=== PATIENT | female | born 1960 | race Caucasian/White ===

== ENCOUNTER → 2017-09-05 08:46 | Outpatient (CLI) | payer BC, SELFPAY ==
[2017-09-05 10:33] LABS: Anion Gap 7 (5-15); BUN 12 mg/dL (7-18); BUN/Creat Ratio 17.3 RATIO (10-20); Calcium,Total 9.2 mg/dL (8.5-10.1); Chloride 109 mmol/L (98-107); Cholesterol 176 mg/dL (200); Creatinine, Serum 0.69 mg/dL (0.55-1.02); EST Glomerular Filtration Rate 92 mL/min (>60); Est Glom Filt Rate - Afr Amer 111 mL/min (>60); Glucose 86 mg/dL (74-106); High Density Lipoprotein 71 mg/dL; Potassium 4.5 mmol/L (3.5-5.1); Sodium Level 143 mmol/L (136-145); Triglycerides 55 mg/dL; Very Low Density Lipoprotein 11 mg/dL (5-40)
== END ==
PROVIDERS: Family Provider Family Medicine; PCP Family Medicine; Visit Provider Family Medicine
DX: I10 Essential (primary) hypertension (principal)
CPT/HCPCS: 36415; 80048; 80061

== ENCOUNTER → 2018-03-06 09:30 | Outpatient (CLI) | payer BC, SELFPAY ==
[2018-03-06 12:27] LABS: Anion Gap 7 (5-15); BUN 14 mg/dL (7-18); BUN/Creat Ratio 18.9 RATIO (10-20); Calcium,Total 9.6 mg/dL (8.5-10.1); Chloride 108 mmol/L (98-107); Creatinine, Serum 0.74 mg/dL (0.55-1.02); EST Glomerular Filtration Rate 85 mL/min (>60); Est Glom Filt Rate - Afr Amer 103 mL/min (>60); Glucose 89 mg/dL (74-106); Potassium 4.4 mmol/L (3.5-5.1); Sodium Level 143 mmol/L (136-145)
== END ==
PROVIDERS: Family Provider Family Medicine; PCP Family Medicine; Visit Provider Family Medicine
DX: I10 Essential (primary) hypertension (principal)
CPT/HCPCS: 36415; 80048

== ENCOUNTER 2018-04-14 05:19 | Inpatient (IN) | payer BC, SELFPAY ==
[2018-04-01 10:02] VITALS: PULSE 51; RESP 16; TEMP 36.7; O2SAT 97; BMI 38.0
--- NOTE | 2018-04-01 10:22 | SDCEKG_ITS ---
Test Reason : Blood Pressure : / mmHG Vent. Rate : 048 BPM Atrial Rate : 048 BPM P-R Int : 174 ms QRS Dur : 088 ms QT Int : 466 ms P-R-T Axes : 028 -28 -03 degrees QTc Int : 416 ms Marked sinus bradycardia Moderate voltage criteria for LVH, may be normal variant Abnormal ECG Confirmed by BROCK PASCUAL, JARED ([id number]), senior technical editor CECILE SMITH ([id number] on 04/02/2018 3:33:09 PM Referred By: Armando Fulton Confirmed By:JARED GUTIÉRREZ MD
[2018-04-01 12:18] LABS: Hematocrit 38.8 % (37-47); Hemoglobin 12.5 g/dl (12.0-15.0); Mean Corp Hgb Conc 32.2 g/gl (32-36); Mean Corpuscular Hgb 33.2 pg (27.0-32.0); Mean Corpuscular Volume 103.2 fL (81-99); Mean Platelet Vol. 11.1 fl (6.2-12.0); Platelet Count 152 K/mm3 (150-450); RBC Distribution Width CV 12.6 % (11.6-14.6); RBC Distribution Width SD 47.6 fl (35.1-43.9); Red Blood Count 3.76 M/mm3 (4.2-5.4); White Blood Count 5.5 K/mm3 (4.4-11.0)
[2018-04-01 12:19] LABS: Scan Indicated on CBC? Y/N NO
[2018-04-01 12:40] LABS: Anion Gap 6 (5-15); BUN 17 mg/dL (7-18); BUN/Creat Ratio 24.2 RATIO (10-20); Calcium,Total 9.3 mg/dL (8.5-10.1); Chloride 112 mmol/L (98-107); EST Glomerular Filtration Rate 91 mL/min (>60); Est Glom Filt Rate - Afr Amer 110 mL/min (>60); Estimated Creatinine Clearance 74.72 ml/min; Glucose 80 mg/dL (74-106); Potassium 4.4 mmol/L (3.5-5.1); Sodium Level 144 mmol/L (136-145)
--- NOTE | 2018-04-09 13:45 | CASEMGMT ---
Attempted to contact patient regarding discharge needs after upcoming surgery. No answer on home phone, message left. Anisa Hays LPN Clinical Support
--- NOTE | 2018-04-10 08:32 | CASEMGMT ---
Return phone call from patient. Patient plans to return home after surgery with assist from and daughter. Has outpatient PT set up at [facility] and /daughter will assist with transportation. Patient has a walker, shower seat, toilet riser, and grab bars at home. There are no steps to get into home. Informed patient that RN-CM will likely follow up after surgery. Anisa Hays LPN Clinical Support
[2018-04-14] VITALS (10 sets, daily range): BP systolic 101–153; BP diastolic 49–80; PULSE 46–89; RESP 14–16; TEMP 35.9–37.5; O2SAT 96–100; BMI 38.0
--- NOTE | 2018-04-14 | KNEE_PTH ---
PATIENT: LORENA IVEY LOC: MS3 U#:[id number] AGE/SX: 57/F RO[facility] [facility] [place]04/14/[address]: Dr. Armando Fulton DO : 1960 BED: 1 DIS: 04/15/2018 SPEC #: [id number] RECD: 04/14/18 15:00 STATUS: EVELYN AUGUSTO #: [id number] SANDRA: 04/14/18 00:[address]: Armando Fulton DEPT: SURGICAL PATHOLOGY RECD BY: Herminio Oro ENTERED: 04/14/18 15:00 SP TYPE: TOTAL KNEE OTHR DR: Dr. Lorenzo Gunn MD Tissues: Knee, NOS Procedures: Decalcification bone/plaque Surgery Specimen Level IV HEADER OPERATION: Total knee replacement PRE-OP DIAGNOSIS: Unilateral primary osteoarthritis left knee TISSUE SUBMITTED: Left knee bone and soft tissue MICROSCOPIC DIAGNOSIS Left knee bone and soft, total knee replacement/resection: Pieces of bone with degenerative osteoarthritic changes. Fibroadipose tissue, fibroconnective tissue and reactive synovial tissue. KAITLIN:liudmila 04/17/18 MICROSCOPIC DESCRIPTION Slides are reviewed. GROSS DESCRIPTION Received is one container designated left knee bone and soft tissue. The specimen consists of multiple fragments of maharaj-yellow bone measuring in aggregate 9 x 9 x 3.5 cm. Also in the specimen container are multiple fragments of yellow-white soft tissue measuring in aggregate 7 x 6 x 3 cm. A number of bony fragments contain articular surfaces consistent with tibial plateau and femoral condyle and displaying prominent osteophyte formation, eburnation, and bone erosion. P[employer] sections are submitted in two cassettes as follows: 1 - soft tissue, 2 - bone after decalcification. / KAITLIN:liudmila 04/14/18 TC:5 [facility]: [id number]
[2018-04-14] MEDS: oxyCODONE HCl Cr 10 MG Tablet PO (06:04)
[2018-04-14] MEDS: Acetaminophen 500 MG Tablet 1000 MG PO ×3 (06:04→22:39)
[2018-04-14] MEDS: Lactated Ringers 1,000 ML 999 ML IV (06:28)
[2018-04-14] MEDS: Cefazolin 2 GM in 0.9% Normal Saline 100 ML IV (07:27)
--- NOTE | 2018-04-14 08:59 | PCM.IMDPSTOP ---
Immediate Post-Op Note Date of Procedure: 04/14/18 Primary Surgeon/Physician: Armando Fulton supervisor in circuit testing: Brando Manning Pre-Operative Diagnosis: OA left knee Post-Operative Diagnosis: same Surgery/Procedure Performed:: Left TKR Description of Surgical Findings:: see op note Estimated Blood Loss: minimal Specimen's removed: bone Type of Anesthesia:: Spinal ASA Class: ASA2 Mod Systematic Disease - Admit VTE Documentation VTE Present on Admission: No VTE Mechan Device Prophylaxis: SCD's, Thigh High CHAPARRITA Hose VTE Pharm Prophylaxis ordered?: Yes
--- NOTE | 2018-04-14 09:01 | PCM.OP.BLANK ---
Operative Report Date of Procedure: 04/14/18 Primary Surgeon/Physician: Armando Fulton rn urgent care: Zhao Manning PA-C rn urgent care: Pre-Operative Diagnosis: OA left knee Post-Operative Diagnosis: same Surgery/Procedure Performed: Left TKR Estimated Blood Loss: minimal Specimen's Removed: bone Type of Anesthesia: spinal ASA Class: 2 Implants: [Marianna Triathlon size 4 cemented PS femur. size 4 cemented tibia, 9 mm polyethylene spacer, 29 mm patella ] Indications: Patient has severe end-stage osteoarthritis diagnosed via x-rays in the knee. They have failed all forms of conservative measures including activity modification, injections, anti-inflammatories, use of assistive device. The patient has pain that affects on a daily basis and prevents him from doing things that they enjoyed. They have elected to undergo the above procedure. The risks of the procedure were discussed at length and their questions were answered. Procedure Description: The patient was greeted in the preoperative area. The [ left] knee was then marked with a surgical marker. Patient was then taken to or Suite 1. They were administered a dose of antibiotics as well as tranexamic acid. Once adequate anesthesia was obtained and airway was secured to placed in supine position on the operating room table. A well-padded tourniquet was placed on the affected extremity. Leg was then prepped and draped in the usual sterile fashion from the knee down. Ioban was used on the skin. Surgical timeout was then performed and confirmed with all present. Six-inch Esmarch was used to examine the limb and tourniquet was then inflated to 250 mmHg. A longitudinal incision was then planned and carried out in the anterior aspect of the knee. The dissection was then carried the length of the incision the extensor mechanism was identified. Standard medial parapatellar arthrotomy was then performed revealing severe eburnation of bone and periarticular osteophytes. There is complete loss of cartilage especially in the medial compartment with varus alignment. Anterior fat pad was removed for visualization purposes and the anterior medial aspect of the tibia was skeletonized for exposure to the knee. The knee was then flexed the patella was inverted. Opening reamer was then used in the femur approximately 1 cm anterior to the attachment of the PCL. The intramedullary valgus wand was then placed in the femur set at 5? of valgus. The distal femoral cutting jig was then applied to the femur with anticipated resection of approximately 8 mm. This was then made with a oscillating saw. The sizing guide was then placed referencing off the posterior condyles and also reference off the epicondylar axis. This was measured and the appropriate size 4-in-1 cutting jig was then applied to the distal femur. Anterior posterior cuts were made followed by the anterior and posterior chamfer cuts. These bony pieces and fragments were removed and placed on the back table. Posterior retractor was then utilized and the tibia was subluxed anteriorly. Intramedullary tibial alignment jig was then applied to the tibia referencing off the medial one third of the tibial tubercle the anterior tibial spine the middle aspect of the tibiotalar joint. Also reference off patient's [place] slope. The tibial cutting jig was then pinned with anticipated resection of 2 mm off of the deficient medial tibial condyle. This cut was made with the oscillating saw. Once this was complete a laminar screen printing cloth spreader was utilized in both medial lateral meniscus were removed and a posterior capsular osteophytes were also removed. Posterior capsule release was performed in the posterior capsule as well as the geniculate arteries are treated with the aqua Cameron. The tibia was incised and the appropriate sized tibial tray was then pinned. The femoral box cutting jig was then applied to the femur and the box was prepared removing a portion of the intercondylar notch. The femoral trial was then placed and the knee was trialed. Full flexion-extension were easily achieved. The knee seemed to balance quite nicely. Any remaining osteophytes were removed at this time. Once this was complete the patella was everted and the Halima patella reaming device was then utilized the patella was then placed in the appropriate jig and reamer was then used to remove approximately 9 mm of the undersurface of the patella. A soft tissue remaining was in the way was removed and patella trial was then placed listed maintain excellent tracking using the no thumbs technique. The tibial tray at this point was punched to accommodate the fins of the final implant. At this point cement was mixed on the back table. The trial components were removed and the knee was copiously irrigated. Did use a cocktail of injection for postoperative pain control. The final components were then cemented in the standard fashion and excess cement was removed with cement removal tools and patellar clamp is placed in the patella. As the cement had cured in full extension tourniquet was deflated and hemostasis was perfect with Bovie cautery as well as the aqua Manus. Needle is once again trialed with different size polyethylenes to ensure the full range of motion was achieved as well as excellent balancing ligamentously was achieved. At this point the knee was copiously irrigated. Final implant was then inserted locking mechanism was engaged and confirmed to be locked. The arthrotomy was then closed with #1 Vicryl aggravate type fashion interrupted. Subcutaneous tissue was closed with 0 Vicryl and surgical david were placed in the skin. A occlusive silver impregnated dressing was then applied followed by well-padded sterile dressing secured with an John Paul wrap. The patient was taken to the PACU in stable condition. No complications known at this time. Postoperatively we will maintain standard total knee postoperative protocol. The use of the physician patient assistant was integral during this procedure. They assisted with positioning placement of the tourniquet retracting closure and placement of the dressing. The procedure would have been much more difficult without their expertise and assistance
--- NOTE | 2018-04-14 09:05 | OP.PCM_ITS ---
Operative Report Date of Procedure: 04/14/18 Primary Surgeon/Physician: Armando Fulton nursing center tutor: Zhao Manning PA-C nursing center tutor: Pre-Operative Diagnosis: OA left knee Post-Operative Diagnosis: same Surgery/Procedure Performed: Left TKR Estimated Blood Loss: minimal Specimen's Removed: bone Type of Anesthesia: spinal ASA Class: 2 Implants: [Marianna Triathlon size 4 cemented PS femur. size 4 cemented tibia, 9 mm polyethylene spacer, 29 mm patella ] Indications: Patient has severe end-stage osteoarthritis diagnosed via x-rays in the knee. They have failed all forms of conservative measures including activity modification, injections, anti-inflammatories, use of assistive device. The patient has pain that affects on a daily basis and prevents him from doing things that they enjoyed. They have elected to undergo the above procedure. The risks of the procedure were discussed at length and their questions were answered. Procedure Description: The patient was greeted in the preoperative area. The [ left] knee was then marked with a surgical marker. Patient was then taken to or Suite 1. They were administered a dose of antibiotics as well as tranexamic acid. Once adequate anesthesia was obtained and airway was secured to placed in supine position on the operating room table. A well-padded tourniquet was placed on the affected extremity. Leg was then prepped and draped in the usual sterile fashion from the knee down. Ioban was used on the skin. Surgical timeout was then performed and confirmed with all present. Six-inch Esmarch was used to examine the limb and tourniquet was then inflated to 250 mmHg. A longitudinal incision was then planned and carried out in the anterior aspect of the knee. The dissection was then carried the length of the incision the extensor mechanism was identified. Standard medial parapatellar arthrotomy was then performed revealing severe eburnation of bone and periarticular osteophytes. There is complete loss of cartilage especially in the medial compartment with varus alignment. Anterior fat pad was removed for visualization purposes and the anterior medial aspect of the tibia was skeletonized for exposure to the knee. The knee was then flexed the patella was inverted. Opening reamer was then used in the femur approximately 1 cm anterior to the attachment of the PCL. The intramedullary valgus wand was then placed in the femur set at 5? of valgus. The distal femoral cutting jig was then applied to the femur with anticipated resection of approximately 8 mm. This was then made with a oscillating saw. The sizing guide was then placed referencing off the posterior condyles and also reference off the epicondylar axis. This was measured and the appropriate size 4-in-1 cutting jig was then applied to the distal femur. Anterior posterior cuts were made followed by the anterior and posterior chamfer cuts. These bony pieces and fragments were removed and placed on the back table. Posterior retractor was then utilized and the tibia was subluxed anteriorly. Intramedullary tibial alignment jig was then applied to the tibia referencing off the medial one third of the tibial tubercle the anterior tibial spine the middle aspect of the tibiotalar joint. Also reference off patient's [place] slope. The tibial cutting jig was then pinned with anticipated resection of 2 mm off of the deficient medial tibial condyle. This cut was made with the oscillating saw. Once this was complete a laminar filler spreader was utilized in both medial lateral meniscus were removed and a posterior capsular osteophytes were also removed. Posterior capsule release was performed in the posterior capsule as well as the geniculate arteries are treated with the aqua Cameron. The tibia was incised and the appropriate sized tibial tray was then pinned. The femoral box cutting jig was then applied to the femur and the box was prepared removing a portion of the intercondylar notch. The femoral trial was then placed and the knee was trialed. Full flexion-extension were easily achieved. The knee seemed to balance quite nicely. Any remaining osteophytes were removed at this time. Once this was complete the patella was everted and the Halima patella reaming device was then utilized the patella was then placed in the appropriate jig and reamer was then used to remove approximately 9 mm of the undersurface of the patella. A soft tissue remaining was in the way was removed and patella trial was then placed listed maintain excellent tracking using the no thumbs technique. The tibial tray at this point was punched to accommodate the fins of the final implant. At this point cement was mixed on the back table. The trial components were removed and the knee was copiously irrigated. Did use a cocktail of injection for postoperative pain control. The final components were then cemented in the standard fashion and excess cement was removed with cement removal tools and patellar clamp is placed in the patella. As the cement had cured in full extension tourniquet was deflated and hemostasis was perfect with Bovie cautery as well as the aqua Manus. Needle is once again trialed with different size polyethylenes to ensure the full range of motion was achieved as well as excellent balancing ligamentously was achieved. At this point the knee was copiously irrigated. Final implant was then inserted locking mechanism was eng aged and confirmed to be locked. The arthrotomy was then closed with #1 Vicryl aggravate type fashion interrupted. Subcutaneous tissue was closed with 0 Vicryl and surgical david were placed in the skin. A occlusive silver impregnated dressing was then applied followed by well-padded sterile dressing secured with an John Paul wrap. The patient was taken to the PACU in stable condition. No complications known at this time. Postoperatively we will maintain standard total knee postoperative protocol. The use of the physician habilitation assistant was integral during this procedure. They assisted with positioning placement of the tourniquet retracting closure and placement of the dressing. The procedure would have been much more difficult without their expertise and assistance
[2018-04-14 10:48] LABS: Hematocrit 41.7 % (37-47); Hemoglobin 13.8 g/dl (12.0-15.0); Mean Corp Hgb Conc 33.1 g/gl (32-36); Mean Corpuscular Hgb 33.9 pg (27.0-32.0); Mean Corpuscular Volume 102.5 fL (81-99); Mean Platelet Vol. 10.8 fl (6.2-12.0); Platelet Count 132 K/mm3 (150-450); RBC Distribution Width CV 12.4 % (11.6-14.6); RBC Distribution Width SD 46.2 fl (35.1-43.9); Red Blood Count 4.07 M/mm3 (4.2-5.4); White Blood Count 5.8 K/mm3 (4.4-11.0)
[2018-04-14 10:53] LABS: Scan Indicated on CBC? Y/N NO
[2018-04-14 11:01] LABS: Anion Gap 7 (5-15); BUN 15 mg/dL (7-18); BUN/Creat Ratio 19.9 RATIO (10-20); Calcium,Total 9.1 mg/dL (8.5-10.1); Chloride 110 mmol/L (98-107); Creatinine, Serum 0.75 mg/dL (0.55-1.02); EST Glomerular Filtration Rate 83 mL/min (>60); Est Glom Filt Rate - Afr Amer 101 mL/min (>60); Estimated Creatinine Clearance 69.74 ml/min; Glucose 92 mg/dL (74-106); Sodium Level 144 mmol/L (136-145)
[2018-04-14] MEDS: Lisinopril 10 MG Tablet PO (13:08)
[2018-04-14] MEDS: hydroCHLOROthiazide 25 MG Tablet PO (13:09)
[2018-04-14] MEDS: Lactated Ringers 1,000 ML 125 ML IV ×2 (13:10→22:39)
[2018-04-14] MEDS: Cefazolin 1 GM/50 ML BAG IV ×2 (15:07→23:50)
[2018-04-14] MEDS: Aspirin 325 MG Tablet PO (22:39)
[2018-04-14] MEDS: Senna/Docusate Sodium 1 Tablet 2 TABLET PO (22:39)
[2018-04-14] MEDS: oxyCODONE 5 MG Tablet PO (22:40)
[2018-04-15 03:12] VITALS: BP 141/69; PULSE 62; RESP 18; TEMP 37.3; O2SAT 94
[2018-04-15] MEDS: oxyCODONE 5 MG Tablet PO ×2 (03:24→09:15)
[2018-04-15] MEDS: Acetaminophen 500 MG Tablet 1000 MG PO ×2 (05:44→13:04)
[2018-04-15 06:12] LABS: Hematocrit 35.4 % (37-47); Hemoglobin 11.6 g/dl (12.0-15.0); Mean Corp Hgb Conc 32.8 g/gl (32-36); Mean Corpuscular Hgb 33.6 pg (27.0-32.0); Mean Corpuscular Volume 102.6 fL (81-99); Mean Platelet Vol. 10.8 fl (6.2-12.0); Platelet Count 129 K/mm3 (150-450); RBC Distribution Width CV 12.4 % (11.6-14.6); RBC Distribution Width SD 46.7 fl (35.1-43.9); Red Blood Count 3.45 M/mm3 (4.2-5.4); White Blood Count 5.4 K/mm3 (4.4-11.0)
[2018-04-15 06:26] LABS: Scan Indicated on CBC? Y/N NO
[2018-04-15 06:35] LABS: Anion Gap 6 (5-15); BUN 12 mg/dL (7-18); BUN/Creat Ratio 15.9 RATIO (10-20); Calcium,Total 8.9 mg/dL (8.5-10.1); Chloride 109 mmol/L (98-107); Creatinine, Serum 0.76 mg/dL (0.55-1.02); EST Glomerular Filtration Rate 83 mL/min (>60); Est Glom Filt Rate - Afr Amer 101 mL/min (>60); Estimated Creatinine Clearance 68.82 ml/min; Glucose 102 mg/dL (74-106); Potassium 4.1 mmol/L (3.5-5.1); Sodium Level 144 mmol/L (136-145)
--- NOTE | 2018-04-15 07:35 | PCM.PN.ORT ---
Subjective: Patient sitting at bedside eating breakfast. Pain well managed. Denies chest pain, shortness breath, calf pain, nausea vomiting. Patient states she is ready to go home today. Patient feels comfortable leaving today as she has gone through a previous total knee. Objective: Dressings clean dry intact. Negative signs and symptoms of DVT. Vital signs labs all within normal limits. Patient is afebrile neurovascular is otherwise intact. - Physical Exam General: Alert, Oriented x3, Cooperative HEENT: PERRLA Oral: Moist Mucosa Cardiovascular: Regular rate Neurological: Cranial nerves II-XII grossly intact Psych/Mental Status: Normal Affect, Alert and oriented to time, place, person, mood and affect Vital Signs Temp Pulse Resp BP Pulse Ox 99.2 F H 62 18 141/69 H 94 04/15/18 03:12 04/15/18 03:12 04/15/18 03:12 04/15/18 03:12 04/15/18 03:12 Oxygen Delivery Method Room Air Weight: 100.4 kg Body Mass Index (BMI) 38.0 Intake and Output for Last 24 Hours 04/13/18 04/14/18 04/15/18 23:59 23:59 23:59 Intake Total 4374 / 4374 736 / 736 Output Total 800 / 800 800 / 800 Balance 3574 / 3574 -64 / -64 Laboratory Tests Past 24 Hrs 04/14/18 04/14/18 04/15/18 10:35 10:35 05:32 WBC 5.8 5.4 RBC 4.07 L 3.45 L Hgb 13.8 11.6 L Hct 41.7 35.4 L MCV 102.5 H 102.6 H MCH 33.9 H 33.6 H MCHC 33.1 32.8 RDW 12.4 12.4 RDW Differential 46.2 H 46.7 H Plt Count 132 L 129 L MPV 10.8 10.8 Sodium 144 Potassium 4.0 Chloride 110 H Carbon Dioxide 27.0 Anion Gap 7 BUN 15 Creatinine 0.75 Estim Creat Clear Calc 69.74 Est GFR (MDRD) Af Amer 101 Est GFR (MDRD) Non-Af 83 BUN/Creatinine Ratio 19.9 Glucose 92 Calcium 9.1 04/15/18 05:32 WBC RBC Hgb Hct MCV MCH MCHC RDW RDW Differential Plt Count MPV Sodium 144 Potassium 4.1 Chloride 109 H Carbon Dioxide 29.0 Anion Gap 6 BUN 12 Creatinine 0.76 Estim Creat Clear Calc 68.82 Est GFR (MDRD) Af Amer 101 Est GFR (MDRD) Non-Af 83 BUN/Creatinine Ratio 15.9 Glucose 102 Calcium 8.9 Medical Necessity - Tobacco Use Smoking Status: Never smoker Assessment/Plan Status post left total knee arthroplasty Plan 1. Continue all pain medications as prescribed 2. Physical therapy today weight-bear as tolerated with walker. 3. Aspirin 325 mg 1 p.o. every 12 hours times 30 days for postop DVT prophylaxis 4. Encourage incentive spirometry 5. Discharge home today after p.m. therapy 6. Follow-up with Dr. Fulton as scheduled, see pink sheet
--- NOTE | 2018-04-15 07:43 | DCINST_ITS ---
Discharge Diet: No Restrictions Discharge Activity: May Not Drive, May Shower, Use Walker May shower in (days): 3 Ice area for (Minutes): 20 - each hour while awake. Weight Bearing Status: Weight bearing as tolerated Elevate: Operative Extremity Additional Activity Instructions:: Wear elastic stockings for 2 weeks after your surgery. Call your doctor if your incision/area has: Continuous Slow Oozing, Sudden Increased Bleeding, Increased Pain/ Swelling, Increased Redness, Foul Smelling Discharge Call your doctor if you observe: Fever of 101 or Higher, Coldness, Increased Pain - in extremity, Numbness or Tingling, Change in Color, Calf discomfort, Uncontrolled pain Change Dressing in (Days):: 0 - and daily as needed. Remove Dressing in (days):: 8 Cleanse incision/area with: Soap & Water Allergies/Adverse Reactions: Allergies Sulfa (Sulfonamide Antibiotics) Allergy (Verified 04/01/18 09:55) Rash Medications to take at Discharge Spironolactone [Aldactone] 50 mg PO DAILY PRN 03/02/14 Lisinopril [Zestril] 10 mg PO DAILY 03/20/16 Multivit-Minerals/Folic Acid [One Daily Womens 50 Plus Tab] 1 tab PO DAILY 04/01/18 Hydrochlorothiazide [Hctz] 25 mg PO DAILY 04/14/18 Acetaminophen [Tylenol] 1,000 mg PO Q8 #90 tab 04/15/18 Aspirin 325 mg PO BID #60 tab 04/15/18 Oxycodone [Oxyir] 5 - 10 mg PO Q4H PRN PRN 7 Days #90 tab 04/15/18 The following prescriptions were given: Oxycodone [Oxyir] 5 - 10 mg PO Q4H PRN PRN 7 Days #90 tab PRN Reason: Mod-Severe Pain (4-04/02) Acetaminophen [Tylenol] 1,000 mg PO Q8 #90 tab Aspirin 325 mg PO BID #60 tab Primary Care Physician: Lorenzo Gunn MD [Primary Care Provider] - Test Results: Test results from this visit will be discussed in further detail at your follow- up appointment, if applicable. Please Follow Up With: Armando Fulton, When: see pink sheet
[2018-04-15] MEDS: Aspirin 325 MG Tablet PO (09:12)
[2018-04-15] MEDS: Multivitamins,Ther W-Minerals Tablet 1 TABLET PO (09:12)
[2018-04-15] MEDS: Lisinopril 10 MG Tablet PO (09:12)
[2018-04-15] MEDS: Senna/Docusate Sodium 1 Tablet 2 TABLET PO (09:12)
[2018-04-15] MEDS: hydroCHLOROthiazide 25 MG Tablet PO (09:12)
[2018-04-15 09:15] VITALS: BP 159/78; PULSE 64; RESP 16; TEMP 36.6; O2SAT 100
--- NOTE | 2018-04-15 11:05 | CASEMGMT ---
RN ELENA Face to Face with patient for initial transition planning/care coordination assessment. RN ELENA introduced self and role at [facility]. Patient lying in bed, alert and oriented, at beside. Patient willing to participate in assessment and is able to answer all questions appropriately. Care providers, pharmacy, and demographics verified. Patient wishes to discharge home with outpatient therapy setup with [facility] and family providing transportation. Patient states she has no further needs or concerns at this time. CM to follow for discharge planning needs that may arise. PCP: Velia Rahman Pharmacy: [facility] Insurance: [employer]mers Prescription Benefit: Summers Living Will/HPOA: None, declined information LNOK: and daughter Living Arrangements: Patient lives with in 2 story home with bed and bath on 1st floor. Transportation: and daughter DME/HHC: Patient has walker, shower chair, raised toilet seat, and grab bars. Disposition Plan: Patient to discharge home with outpatient therapy, family support, and follow-up plans in place. Jennifer MATHEWS, RN, CM
[2018-04-15 13:00] VITALS: BP 139/71; PULSE 85; RESP 18; TEMP 36.7; O2SAT 99
== END 2018-04-15 13:15 | disposition home or self-care (01) | DRG 470 ==
LOC: ACINP 04-15 07:08 → MS3 04-15 07:08
PROVIDERS: Admitting Provider Orthopaedic Surgery; Family Provider Family Medicine; PCP Family Medicine; Referring Provider Orthopaedic Surgery; Visit Provider Orthopaedic Surgery
PROC: 0SRD0J9 Replacement of Left Knee Joint with Synthetic Substitute, Cemented, Open Approach (ICD-10-PCS; CPT 27447; principal; 2018-04-14 06:50)
DX: M17.12 Unilateral primary osteoarthritis, left knee (principal)
CPT/HCPCS: 36415; 80048; 85027; 87081; 88305; 88311; 93005; 97110; 97162; 97165; 97530; C1776; J7120

== ENCOUNTER 2018-06-22 09:30 | Emergency (ER) | payer BC, SELFPAY ==
[2018-06-22 09:31] VITALS: BP 140/91; PULSE 80; RESP 17; TEMP 36.4; O2SAT 99; BMI 36.3
--- NOTE | 2018-06-22 09:44 | ED.DCSUM_ITS ---
- ER Visit Summary Date of Service: 06/22/18 Chief Complaint: Nausea History of Present Illness: The patient is a 58 F presents to the emergency department nausea vomiting. The patient has had nausea and dizziness since her knee surgery. She has been using scopolamine patches. She states that soon she takes it off, within 24 hours, her nausea returns. She took her last one off on Saturday. She did try to call her orthopedic surgeon, but she was unable to get hold of him to have her patches called in. She states that her nausea returned yesterday, and she is been vomiting since. She states every 30 minutes, she will have vomiting. She describes the dizziness as a sensation of motion. She states before her surgery, she did not have these problems. She denies any headaches. She denies any trouble speaking or swallowing. She denies any weakness, numbness, or tingling. Physical Examination: Vital signs reviewed General: Well-nourished, well-developed Head: Normocephalic, atraumatic Eyes: Pupils equal and reactive, extraocular muscles intact Neck, supple, no lymphadenopathy Heart: Regular rate and rhythm Respiratory: No distress, clear bilaterally Abdomen: Soft, nontender, nondistended, no peritoneal signs Back: Nontender Extremities: Nontender, no edema, no cords Skin: Normal color no rash Neuro: Alert and oriented, no focal or lateralizing deficits Test Results: [] Emergency Department Course and Treatment: My suspicion is that the patient is likely having withdrawal from the medication. She has been dependent on it for over 2 months. She does not want to go back on this medication. The patient had IV fluids and Zofran. She did have marked improvement of her symptoms. She is able to move without dizziness or lightheadedness. Screening labs were obtained and were unremarkable. I am going to treat the patient with Zofran as she does not want to go back on scopolamine. A do feel that she is safe for outpatient therapy.. She was counseled concerning symptoms and reasons to re turn. She will be discharged home. Treatment Plan: [] Disposition: Discharge Impression: 1. Nausea and vomiting 2. Medication withdrawal This note was generated with [employer] software. It may contain incorrect words, spelling, and punctuation that were not noted in review of the chart prior to signing ED Disposition - Plan for ED Patient: Chief Complaint: Nausea/Vomiting Instructions: ED Nausea Vomiting Prescriptions: Ondansetron [Zofran Odt] 4 mg PO Q8H PRN PRN #10 tab PRN Reason: Nausea Referrals: Lorenzo Gunn MD [Primary Care Provider] -
[2018-06-22] MEDS: Ondansetron 4 MG/2 ML Vial IV (10:11)
[2018-06-22] MEDS: 0.9% Normal Saline 1,000 ML 1000 ML IV (10:11)
[2018-06-22 10:17] LABS: Absolute Lymphocyte Count 0.85 X10^3/ul (0.83-4.51); Absolute Neutrophil Count 6.8 X10^3/uL (2.0-7.7); Basophil# 0.02 X10^3/uL; Basophil% 0.3 % (0-1); Eosinophil# 0.01 X10^3/uL; Eosinophils% 0.1 % (0-5); Hematocrit 40.1 % (37-47); Hemoglobin 13.4 g/dl (12.0-15.0); Lymphocyte # 0.85 X10^3/ul (4.0); Lymphocyte % 10.7 % (19-41); Mean Corp Hgb Conc 33.4 g/gl (32-36); Mean Corpuscular Hgb 33.8 pg (27.0-32.0); Mean Platelet Vol. 10.2 fl (6.2-12.0); Monocyte# 0.29 X10^3/uL; Monocyte% 3.6 % (0-10); Neutrophil # 6.79 X10^3/uL (2.7-7.7); Neutrophil % 85.2 % (47-70); Platelet Count 187 K/mm3 (150-450); RBC Distribution Width CV 12.7 % (11.6-14.6); RBC Distribution Width SD 46.8 fl (35.1-43.9); Red Blood Count 3.97 M/mm3 (4.2-5.4)
[2018-06-22 10:18] LABS: POSITIVE COUNT NO; POSITIVE DIFFERENTIAL NO; POSITIVE MORPHOLOGY NO
[2018-06-22 10:29] LABS: Anion Gap 10 (5-15); BUN 11 mg/dL (7-18); BUN/Creat Ratio 15.7 RATIO (10-20); Calcium,Total 9.9 mg/dL (8.5-10.1); Chloride 106 mmol/L (98-107); EST Glomerular Filtration Rate 90 mL/min (>60); Est Glom Filt Rate - Afr Amer 109 mL/min (>60); Glucose 108 mg/dL (74-106); Potassium 3.7 mmol/L (3.5-5.1); Sodium Level 143 mmol/L (136-145)
[2018-06-22 11:12] VITALS: PULSE 76; RESP 16; O2SAT 98
== END 2018-06-22 11:12 | disposition home or self-care (01) ==
PROVIDERS: Emergency Provider Emergency Medicine; Family Provider Family Medicine; PCP Family Medicine
DX: R11.2 Nausea with vomiting, unspecified (principal); F19.939 Other psychoactive substance use, unspecified with withdrawal, unspecified; I10 Essential (primary) hypertension
CPT/HCPCS: 80048; 85025; 96361; 96374; 99283; J2405

== ENCOUNTER → 2018-09-03 11:06 | Outpatient (CLI) | payer BC, SELFPAY ==
[2018-07-01 10:14] VITALS: BMI 36.3
[2018-09-03 12:52] LABS: Anion Gap 6 (5-15); BUN 14 mg/dL (7-18); BUN/Creat Ratio 19.9 RATIO (10-20); Calcium,Total 9.4 mg/dL (8.5-10.1); Chloride 109 mmol/L (98-107); Cholesterol 174 mg/dL (200); EST Glomerular Filtration Rate 90 mL/min (>60); Est Glom Filt Rate - Afr Amer 109 mL/min (>60); Glucose 90 mg/dL (74-106); High Density Lipoprotein 72 mg/dL; Potassium 3.7 mmol/L (3.5-5.1); Sodium Level 143 mmol/L (136-145); Triglycerides 82 mg/dL; Very Low Density Lipoprotein 16 mg/dL (5-40)
== END ==
PROVIDERS: Family Provider Family Medicine; PCP Family Medicine; Referring Provider Family Medicine; Visit Provider Family Medicine
DX: I10 Essential (primary) hypertension (principal)
CPT/HCPCS: 36415; 80048; 80061

== ENCOUNTER → 2019-03-06 09:53 | Outpatient (CLI) | payer BC, SELFPAY ==
[2018-07-01 10:14] VITALS: BMI 36.3
[2019-03-06 13:02] LABS: Anion Gap 6 (5-15); BUN 12 mg/dL (7-18); BUN/Creat Ratio 16.6 RATIO (10-20); Calcium,Total 9.5 mg/dL (8.5-10.1); Chloride 107 mmol/L (98-107); Creatinine, Serum 0.72 mg/dL (0.55-1.02); EST Glomerular Filtration Rate 87 mL/min (>60); Est Glom Filt Rate - Afr Amer 105 mL/min (>60); Glucose 75 mg/dL (74-106); Potassium 3.6 mmol/L (3.5-5.1); Sodium Level 141 mmol/L (136-145)
== END ==
PROVIDERS: Family Provider Family Medicine; PCP Family Medicine; Referring Provider Family Medicine; Visit Provider Family Medicine
DX: I10 Essential (primary) hypertension (principal)
CPT/HCPCS: 36415; 80048

== ENCOUNTER → 2019-10-15 09:05 | Outpatient (CLI) | payer BC, SELFPAY ==
[2018-07-01 10:14] VITALS: BMI 36.3
[2019-10-15 10:10] LABS: Anion Gap 6 (5-15); BUN 16 mg/dL (7-18); Calcium,Total 9.5 mg/dL (8.5-10.1); Chloride 106 mmol/L (98-107); Cholesterol 178 mg/dL (200); Creatinine, Serum 0.67 mg/dL (0.55-1.02); EST Glomerular Filtration Rate 96 mL/min (>60); Est Glom Filt Rate - Afr Amer 116 mL/min (>60); Glucose 88 mg/dL (74-106); High Density Lipoprotein 78 mg/dL; Potassium 3.8 mmol/L (3.5-5.1); Sodium Level 141 mmol/L (136-145); Triglycerides 57 mg/dL; Very Low Density Lipoprotein 11 mg/dL (5-40)
== END ==
PROVIDERS: PCP Family Medicine; Referring Provider Family Medicine; Visit Provider Family Medicine
DX: I10 Essential (primary) hypertension (principal)
CPT/HCPCS: 36415; 80048; 80061

== ENCOUNTER → 2019-12-23 | Outpatient (CLI) | payer BC, SELFPAY ==
[2018-07-01 10:14] VITALS: BMI 36.3
== END | disposition home or self-care (01) ==
LOC: LABSPEC 08:14
PROVIDERS: PCP Family Medicine; Visit Provider Family Medicine
DX: Z11.59 Encounter for screening for other viral diseases (principal)
CPT/HCPCS: 87635; U0003

== ENCOUNTER → 2020-02-20 | Outpatient (CLI) | payer BC, SELFPAY ==
[2018-07-01 10:14] VITALS: BMI 36.3
== END | disposition home or self-care (01) ==
LOC: LAB 07:05
PROVIDERS: Referring Provider Family Medicine; Visit Provider Family Medicine
DX: Z11.59 Encounter for screening for other viral diseases (principal)
CPT/HCPCS: 87635; U0003

== ENCOUNTER → 2020-03-10 | Outpatient (CLI) | payer BC, SELFPAY ==
[2018-07-01 10:14] VITALS: BMI 36.3
== END | disposition home or self-care (01) ==
LOC: LABSPEC 16:39
PROVIDERS: Referring Provider Family Medicine; Visit Provider Family Medicine
DX: Z03.818 Encounter for observation for suspected exposure to other biological agents ruled out (principal)
CPT/HCPCS: 87635; U0003

== ENCOUNTER → 2020-03-24 | Outpatient (CLI) | payer BC, SELFPAY ==
[2018-07-01 10:14] VITALS: BMI 36.3
== END | disposition home or self-care (01) ==
LOC: LAB.FUTURE 13:31
PROVIDERS: Referring Provider Family Medicine; Visit Provider Family Medicine
DX: Z03.818 Encounter for observation for suspected exposure to other biological agents ruled out (principal)
CPT/HCPCS: 87635; U0003

== ENCOUNTER → 2020-04-21 | Outpatient (CLI) | payer BC, SELFPAY ==
[2018-07-01 10:14] VITALS: BMI 36.3
== END | disposition home or self-care (01) ==
LOC: LABSPEC 13:45
PROVIDERS: Referring Provider Family Medicine; Visit Provider Family Medicine
DX: Z03.818 Encounter for observation for suspected exposure to other biological agents ruled out (principal)
CPT/HCPCS: 87635; U0003

== ENCOUNTER → 2020-04-27 09:26 | Outpatient (CLI) | payer BC, SELFPAY ==
[2018-07-01 10:14] VITALS: BMI 36.3
[2020-04-27 13:06] LABS: Anion Gap 4 (5-15); BUN 19 mg/dL (7-18); BUN/Creat Ratio 26.7 RATIO (10-20); Calcium,Total 9.4 mg/dL (8.5-10.1); Chloride 109 mmol/L (98-107); Cholesterol 166 mg/dL (200); Creatinine, Serum 0.71 mg/dL (0.55-1.02); EST Glomerular Filtration Rate 89 mL/min (>60); Est Glom Filt Rate - Afr Amer 107 mL/min (>60); Glucose 84 mg/dL (74-106); High Density Lipoprotein 76 mg/dL; Potassium 3.9 mmol/L (3.5-5.1); Sodium Level 139 mmol/L (136-145); Triglycerides 45 mg/dL; Very Low Density Lipoprotein 9 mg/dL (5-40)
== END ==
PROVIDERS: PCP Family Medicine; Referring Provider Family Medicine; Visit Provider Family Medicine
DX: I10 Essential (primary) hypertension (principal)
CPT/HCPCS: 36415; 80048; 80061

== ENCOUNTER → 2020-05-02 | Outpatient (CLI) | payer BC, SELFPAY ==
[2018-07-01 10:14] VITALS: BMI 36.3
== END | disposition home or self-care (01) ==
LOC: LABSPEC 10:55
PROVIDERS: PCP Family Medicine; Referring Provider Family Medicine; Visit Provider Family Medicine
DX: Z03.818 Encounter for observation for suspected exposure to other biological agents ruled out (principal)
CPT/HCPCS: 87635; U0003

== ENCOUNTER 2020-05-04 12:27 | Inpatient (IN) | payer BC, SELFPAY ==
[2018-07-01 10:14] VITALS: BMI 36.3
[2020-05-04 12:28] VITALS: BP 157/96; PULSE 75; RESP 17; TEMP 37.1; O2SAT 100; BMI 38.4
--- NOTE | 2020-05-04 12:43 | VDLE_ITS ---
Reason For Study: Swelling Procedure LEFT This is a venous duplex using B-mode, color GSV is normal. flow and spectral Doppler. CFV is compressible, spontaneous, phasic, Exam performed portable in ED. competent, and demonstrates normal A preliminary report was called and/or faxed augmentation. to [facility]. FV is compressible, spontaneous, phasic, competent and demonstrates normal augmentation. POP V is compressible, spontaneous, phasic, competent and demonstrates normal augmentation. T/P Trunk is compressible. PTV is compressible. LT PerV is compressible. Interpretation Summary There is no evidence of left lower extremity deep vein thrombosis. Left great saphenous vein appears patent and compressible segmentally. Ordering Physician: Jaspal Coelho Referring Physician: Lorenzo Gunn Performed By: Jennifer Whalen RVT
--- NOTE | 2020-05-04 12:44 | ED.VIS.GEN ---
History of Present Illness Chief Complaint: Edema Informant: Patient Narrative: Patient presents the emergency room with pain swelling and redness of the left leg. Symptoms began yesterday. She states it is very painful. She reports that she works at a [employer] and tested positive for COVID-19 on Saturday but then tested negative on Saturday. She denies any cough or shortness of breath. She notes a mild rhinorrhea. No diarrhea. She states she has chronic lymphedema. She was recently taken off of hydrochlorothiazide. She is unsure of her other diuretic. She notes chills but no fever. - Past Medical History (1) Chronic venous insufficiency Status: Chronic (2) Hypertension Status: Chronic (3) Obesity Status: Chronic Past Medical History - Allergies and Home Meds Allergies/Adverse Reactions: Allergies Sulfa (Sulfonamide Antibiotics) Allergy (Verified 05/04/20 12:27) Rash Surgical History: noncontributory, - - The patient has a history of section ?2 in the past. She is a C2 P2 Ab0. She underwent left nephrectomy in 2006. Right total knee replacement surgeries performed in 2013. Lumbar spinal fusion was performed in 2012. Smoking Status: Never smoker Drugs: None - Family History Maternal Family History: Family History (Last Reviewed 05/04/20 @ 15:[address] Anurag Hassan, DO) Father Hypertension Arthritis Brother Diabetes Family History: Reports: - - The patient's father is 83 years of age with history of leg swelling. Her mother is 77 years of age and healthy. Review of Systems General: Reports: Chills. Denies: Fever, Sweats Eyes: Denies: Visual changes - bilaterally, Diplopia ENT: Reports: Rhinorrhea. Denies: Sore throat Cardiovascular: Denies: Chest pain, Palpitations Respiratory: Denies: Dyspnea, Cough, Dyspnea on exertion Gastrointestinal: Denies: Abdominal pain, Nausea, Vomiting, Diarrhea, Melena, Hematochezia Genitourinary: Denies: Dysuria, Hematuria, Frequency Musculoskeletal: Reports: Swelling, Extremity Pain. Denies: Back pain Skin: Reports: Rash. Denies: Wounds Neurological: Denies: Headache, Weakness, Numbness Physical Exam Vital Signs/Narrative: Vital Signs Temp Pulse Resp BP Pulse Ox 05/04/20 12:28 98.7 F 75 17 157/96 H 100 Inital Vital Signs reviewed: Yes General: Well nourished, Well developed, Obese, No Acute Distress Head: Normocephalic, Atraumatic Eyes: Perrl, EOMI ENT: Moist mucous membranes, No rhinorrhea Neck: Supple, Nontender Cardiovascular: Regular rate, Regular rhythm, No murmurs Respiratory: No distress, CTA bilaterally, Chest nontender Abdomen: Soft, Nontender, Nondistended, Normal bowel sounds Back: Nontender, Normal Inspection Extremities: Tenderness - There is bilateral lymphedema though left is greater than right. There is an area of erythema and increased warmth over the lower half of the left leg. There is a small break in the skin anteriorly measuring approximately 2 mm Skin: Normal color, No rash Neurological: Alert, Oriented x3, Cranial nerves II-XII grossly intact, Normal Strength, Normal Sensation Psychological: Normal affect, Normal Mood Diagnostic/Tx/Re-eval - Medical Decision Making Duplex ultrasound was negative for DVT. Multiple people have attempted IV and blood draws on the patient including hair spinning machine operator from lab x2. Her erythema is now extended up to her knee. She has developed a fever of 100.8. Nursing was able to use ultrasound guidance for placement of IV. Patient was given vancomycin and Zosyn. I believe the appropriate thing to do would be admit the patient to the hospital for IV antibiotics. ED Disposition - Plan for ED Patient: Diagnosis: Cellulitis of leg, left, Lymphedema
[2020-05-04 14:27] VITALS: BP 148/76; PULSE 71; RESP 19; TEMP 38.2; O2SAT 97
--- NOTE | 2020-05-04 15:31 | NURSING ---
DR BUCK IN [facility]
--- NOTE | 2020-05-04 15:45 | HP.PCM_ITS ---
Problem List (1) Cellulitis of leg, left Status: Acute (2) Lymphedema Status: Chronic (3) History of bilateral knee replacement Status: Chronic Comment: Right- 2004 Left- 03/2018 (4) History of back surgery Status: Chronic Comment: lower back- 08/2012 (5) Hx of kidney removal Status: Chronic Comment: Left- 2006 (6) History of Status: Chronic Comment: X2 (7) Obesity Status: Chronic Qualifiers: Obesity type: due to excess calories (8) Hypertension Status: Chronic Qualifiers: Hypertension type: essential hypertension Qualified Code(s): I10 - Essential (primary) hypertension (9) Varicose veins with inflammation Status: Chronic (10) Chronic venous insufficiency Status: Chronic (11) Pain In Right Leg Status: Chronic (12) Pain In Left Leg Status: Chronic (13) Edema of both legs Status: Chronic (14) Swelling of lower limb Status: Chronic History of Present Illness Date of Admission: 05/04/20 Chief Complaint: left leg redness. The patient is a 59 year old F presents with redness on her left lower extremity. Began small area in the mid part of her tibia and then she presented to the ER and it has progressed above her knee. Patient is never had cellulitis before. Patient was ordered Pipracil/tazobactam and vancomycin in the emergency room. Cultures were drawn as well. 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 She is denying any Covid type symptoms, including shortness of breath and cough. Patient states that there were some nurses aides that tested positive but she does not have any direct interaction with them. She denies any sick contacts at home. [] Past Medical History Past Medical History (Chronic Problems): Chronic Problems (Last Reviewed 07/01/18 @ 10:05 by Nguyen Irvin) Lymphedema (Chronic) History of bilateral knee replacement (Chronic) Right- 2004 Left- 03/2018 History of back surgery (Chronic) lower back- 08/2012 Hx of kidney removal (Chronic) Left- 2006 History of (Chronic) X2 Obesity (Chronic) Hypertension (Chronic) Varicose veins with inflammation (Chronic) Chronic venous insufficiency (Chronic) Pain In Right Leg (Chronic) Pain In Left Leg (Chronic) Edema of both legs (Chronic) Swelling of lower limb (Chronic) Medical History: Medical History (Last Reviewed 05/04/20 @ 15:[address] Anurag Hassan DO) Obesity (Chronic) E66.9 Hypertension (Chronic) I10 Varicose veins with inflammation (Chronic) I83.10 Chronic venous insufficiency (Chronic) Pain In Right Leg (Chronic) M79.604 Pain In Left Leg (Chronic) M79.605 Edema of both legs (Chronic) R60.0 Swelling of lower limb (Chronic) M79.89 Allergies Sulfa (Sulfonamide Antibiotics) Allergy (Verified 05/04/20 12:27) Rash Home Medications: Ambulatory Orders Medication Instructions Recorded Spironolactone [Aldactone] 50 mg PO DAILY PRN 03/02/14 Lisinopril [Zestril] 10 mg PO DAILY 03/20/16 Multivit-Minerals/Folic Acid [One 1 tab PO DAILY 04/01/18 Daily Womens 50 Plus Tab] Ondansetron [Zofran Odt] 4 mg PO Q8H PRN PRN #10 tab 06/22/18 aspirin 81 mg tablet,delayed 81 mg PO DAILY 07/01/18 release Surgical History: Surgical History (Last Reviewed 05/04/20 @ 15:[address] Anurag Hassan DO) History of bilateral knee replacement (Acute) Z96.653 Right- 2004 Left- 03/2018 History of back surgery (Acute) Z98.890 lower back- 08/2012 Hx of kidney removal (Acute) Z90.5 Left- 2006 History of (Acute) Z98.891 X2 Surgical History: noncontributory, - - The patient has a history of section ?2 in the past. She is a C2 P2 Ab0. She underwent left nephrectomy in 2006. Right total knee replacement surgeries performed in 2013. Lumbar spinal fusion was performed in 2012. Smoking Status: Never smoker Drugs: None - *Family History Maternal Family History: Family History (Last Reviewed 05/04/20 @ 15:[address] Anurag Hassan DO) Father Hypertension Arthritis Brother Diabetes History Items: - - The patient's father is 83 years of age with history of leg swelling. Her mother is 77 years of age and healthy. Review of Systems Constitutional: Reports: Anorexia, Fever, Night Sweats Eyes: Reports: Blurred vision, Double vision HEENT: Denies: Head Aches, Sinus Congestion, Sinus Drainage Cardiovascular: Denies: Chest Pain, Palpitations Respiratory: Denies: Cough, Shortness of breath at rest, Sputum production Gastrointestinal: Denies: Abdominal Pain, Nausea, Vomiting Genitourinary: Denies: Dysuria Musculoskeletal: Denies: Joint Pain, Joint Tenderness Skin: Denies: Dryness, Jaundice Neurological: Denies: Numbness, Tingling, Focal weakness Psychiatric: Denies: Anxiety, Depression Hematologic/ Lymphatic: Denies: Easy Bruising, Easy Bleeding, Hx of blood clot Comment: All review of systems were negative except as mentioned above in the history of present illness and the other review of systems. VTE Information - Inpt Only VTE Present on Admission: No VTE Mechan Device Prophylaxis: None VTE Pharm Prophylaxis ordered?: No Patient Problems: Active and Suspected Problems (Last Reviewed 07/01/18 @ 10:05 by Nguyen Irvin) Cellulitis of leg, left (Acute) - Physical Exam Vitals/I&O's: Vital Signs Temp Pulse Resp BP Pulse Ox 37.1 C 75 17 157/96 H 100 05/04/20 12:28 05/04/20 12:28 05/04/20 12:28 05/04/20 12:28 05/04/20 12:28 Oxygen Delivery Method Room Air Weight: 101.605 kg Body Mass Index (BMI) 38.4 General: Alert, Cooperative, No apparent distress HEENT: Atraumatic, Normocephalic Oral: Moist Mucosa, No Gingival or Mucosal Lesions/ Ulcerations Neck: No Nodes, Thyroid Normal Size and Texture Lungs: Clear to auscultation, Normal air movement, No rhonchi, No wheeze Cardiovascular: Regular rate, Regular Rhythm, Normal S1, Normal S2, No murmurs Abdomen: Bowel Sounds Present, Soft, Non Tender, Non-Distended, No Hepato- splenomegaly Extremities: No Calf Tenderness, Edema Skin: Rash Present - erythema, light pink, on LLE anterior sauceda spreading above knee. No induration. Musculoskeletal: No Tenderness to Palpation of Joints or Extremities, No Muscle Wasting Psych/Mental Status: Normal Affect, Appropriate Laboratory Results 05/04/20 15:30: WBC Pending, RBC Pending, Hgb Pending, Hct Pending, MCV Pending, MCH Pending, MCHC Pending, RDW Std Deviation Pending, RDW Coeff of Francisco Pending, Plt Count Pending, Neut % (Auto) Pending, Absolute Neuts (auto) Pending 05/04/20 15:30: Sodium Pending, Potassium Pending, Chloride Pending, Carbon Dioxide Pending, Anion Gap Pending, BUN Pending, Creatinine Pending, Est GFR (MDRD) Af Amer Pending, Est GFR (MDRD) Non-Af Pending, BUN/Creatinine Ratio Pending, Glucose Pending, Calcium Pending, Total Bilirubin Pending, AST Pending, ALT Pending, Alkaline Phosphatase Pending, Total Protein Pending, Albumin Pending 05/04/20 15:30: PT Pending, INR Pending, APTT Pending 05/04/20 15:30: Lactic Acid Pending Current Medications Piperacillin Sod/Tazobactam (Sod 4.5 gm/ Sodium Chloride) 100 mls @ 200 mls/hr IV X1 ONE Stop: 05/04/20 15:46 Vancomycin HCl 2,000 mg/ (Sodium Chloride) 540 mls @ 250 mls/hr IV X1 ONE Stop: 05/04/20 17:39 Assessment/Plan All Active Problems (Last Reviewed 07/01/18 @ 10:05 by Nguyen Irvin) Cellulitis of leg, left (Acute) 1. LLE cellulitis I suspect is prime more strep and staphylococcal. Will check a MRSA screen as well as a staph screen. Patient received Pipracil/tazobactam and vancomycin in the emergency room. I am going to continue with just vancomycin. 2. Vertigo: Has been going on for period time. Is intermittent at times. As needed meclizine as suspect this is more peripheral. Patient was to get an echocardiogram as outpatient. He will need to be rescheduled as that was post to be done tomorrow. 3. Recent abnormal COVID-19 test: Patient has no symptoms but currently several days ago had a positive Covid test but subsequent test came back negative. We will recheck one in house and if that is negative then patient can go to a general medical floor, however if it is positive, she will need to go to the COVID-19 cohort floor. 4. VTE prophylaxis: Moderate risk. Enoxaparin. 5. Disposition: This is dependent on the patient's response to antibiotics and her cellulitis. If patient does have resolution or improvement of her legs possible she could be discharged home as early as 12. Antibiotics would be contingent on what shows up with MRSA screen. Inpatient E&M: 82348 Init Hosp L2
[2020-05-04 16:06] LABS: ALB/GLOB Ratio 0.8 RATIO (0.9-2.4); AST(SGOT) 16 U/L (15-37); Alanine Aminotransfer ALT/SGPT 18 U/L (13-56); Alkaline Phosphatase 69 U/L (45-117); Anion Gap 5 (5-15); BUN 16 mg/dL (7-18); Calcium,Total 8.9 mg/dL (8.5-10.1); Chloride 108 mmol/L (98-107); Creatinine, Serum 0.84 mg/dL (0.55-1.02); EST Glomerular Filtration Rate 73 mL/min (>60); Est Glom Filt Rate - Afr Amer 88 mL/min (>60); Estimated Creatinine Clearance 60.73 ml/min; Globulin 3.9 g/dL (2.2-4.2); Glucose 118 mg/dL (74-106); Potassium 3.6 mmol/L (3.5-5.1); Protein, Total 6.9 g/dL (6.4-8.2); Sodium Level 139 mmol/L (136-145)
[2020-05-04 16:13] LABS: Lactic Acid 0.9 mmol/L (0.4-1.9)
[2020-05-04 16:25] VITALS: BP 141/61; PULSE 81; RESP 26; TEMP 37.9; O2SAT 97
--- NOTE | 2020-05-04 16:26 | NURSING ---
MED SURG LLE CELLULITIS HEBER
[2020-05-04 16:27] LABS: Absolute Lymphocyte Count 0.31 X10^3/uL (0.83-4.51); Absolute Neutrophil Count 11.6 X10^3/uL (2.0-7.7); Basophil# 0.03 X10^3/uL; Basophil% 0.2 % (0-1); Eosinophil# 0.04 X10^3/uL; Eosinophils% 0.3 % (0-5); Hematocrit 37.6 % (37-47); Hemoglobin 12.2 g/dL (12.0-15.0); Lymphocyte # 0.31 X10^3/ul (4.0); Lymphocyte % 2.5 % (19-41); Mean Corp Hgb Conc 32.4 g/dL (32-36); Mean Corpuscular Hgb 33.4 pg (27.0-32.0); Mean Platelet Vol. 10.8 fl (6.2-12.0); Monocyte# 0.23 X10^3/uL; Monocyte% 1.9 % (0-10); NRBC Flagged by Analyzer 0 % (0-5); Neutrophil # 11.61 X10^3/uL (2.7-7.7); Neutrophil % 94.4 % (47-70); POSITIVE DIFFERENTIAL YES; POSITIVE MORPHOLOGY YES; Platelet Count 124 K/mm3 (150-450); RBC Distribution Width CV 12.3 % (11.6-14.6); RBC Distribution Width SD 46.6 fl (35.1-43.9); Red Blood Count 3.65 M/mm3 (4.2-5.4); White Blood Count 12.3 K/mm3 (4.4-11.0)
[2020-05-04 16:34] LABS: Differential Indicated SCAN CRITERIA MET
[2020-05-04 16:44] LABS: International Normalized Ratio 1.3; Partial Thromboplast Time 34.8 Seconds (24.1-36.2); Prothrombin Time (Protime)PT. 15.2 SECONDS (11.7-14.9)
[2020-05-04 17:15] LABS: Differential Comment SCANNED
[2020-05-04 18:15] VITALS: BP 135/59; PULSE 81; RESP 26; O2SAT 98
[2020-05-04 20:11] VITALS: BMI 38.6
[2020-05-04 20:20] VITALS: BMI 38.6
[2020-05-04 20:24] VITALS: BP 142/57; PULSE 83; RESP 18; TEMP 37.8; O2SAT 94
--- NOTE | 2020-05-04 23:47 | PCM.RX.CS ---
Consult Pharmacy has been consulted to manage selected antiobiotic: Vancomycin Type of Consult: New start Suspected Infection: Skin/Soft tissue Prior Doses of Antibiotics Received/Current Regimen: Medications Vancomycin HCl (Vancomycin) 1,000 mg in 200 mls @ 200 mls/hr IV Q12H SERGO Discontinued Medications Vancomycin HCl 2,000 mg/ (Sodium Chloride) 540 mls @ 250 mls/hr IV X1 ONE Stop: 05/04/20 17:39 Last Admin: 05/04/20 21:01 Dose: Infused Labs: Sodium 139 mmol/L (136-145) 05/04/20 15:30 Potassium 3.6 mmol/L (3.5-5.1) 05/04/20 15:30 Chloride 108 mmol/L (98-107) H 05/04/20 15:30 Carbon Dioxide 26.0 mmol/L (21.0-32.0) 05/04/20 15:30 Anion Gap 5 (5-15) 05/04/20 15:30 BUN 16 mg/dL (7-18) 05/04/20 15:30 Creatinine 0.84 mg/dL (0.55-1.02) 05/04/20 15:30 Est GFR (MDRD) Af Amer 88 mL/min (>60) 05/04/20 15:30 Est GFR (MDRD) Non-Af 73 mL/min (>60) 05/04/20 15:30 BUN/Creatinine Ratio 19.0 RATIO (10-20) 05/04/20 15:30 Glucose 118 mg/dL (74-106) H 05/04/20 15:30 Weight used for dosin.1 kg Estimated Creatinine Clearance: 61 Goal Trough: 10-15 mcg/mL Pharmacy Plan for Drug Dosing: Pharmacy Service will continue to monitor and adjust dosing as required. Follow-Up Labs: Trough Vancomycin Labs to be done on [date and time ordered]: 05/06/20 @6713
[2020-05-05 00:20] LABS: M R Staph aureus DNA By PCR Negative (Negative); Probe Check PASS; Specimen Processing Control PASS
[2020-05-05 02:30] VITALS: BP 133/52; PULSE 81; RESP 18; TEMP 37.7; O2SAT 94
[2020-05-05] MEDS: Vancomycin IV 1,000 MG/200 ML BAG 200 MG IV (05:09)
--- NOTE | 2020-05-05 07:23 | PCM.PN.HOSP ---
Patient Problems: Active and Suspected Problems (Last Reviewed 05/04/20 @ 15:[address] Anurag Hassan, DO) Cellulitis of leg, left (Acute) Reason for Visit: Follow-up on sepsis secondary to left lower extremity cellulitis Subjective: Patient was seen and examined. She complains of low-grade fever. No nausea or vomiting. Her leg erythema appears to be improving. Objective: Physical exam: General: Alert, Cooperative, No apparent distress HEENT: Atraumatic, Normocephalic Oral: Moist Mucosa, No Gingival or Mucosal Lesions/ Ulcerations Neck: No Nodes, Thyroid Normal Size and Texture Lungs: Clear to auscultation, Normal air movement, No rhonchi, No wheeze Cardiovascular: Regular rate, Regular Rhythm, Normal S1, Normal S2, No murmurs Abdomen: Bowel Sounds Present, Soft, Non Tender, Non-Distended, No Hepato-splenomegaly Extremities: No Calf Tenderness, Edema Skin: Rash Present - erythema, light pink, on LLE anterior sauceda, below the knee. No induration, trace bilateral pedal edema Musculoskeletal: No Tenderness to Palpation of Joints or Extremities, No Muscle Wasting Psych/Mental Status: Normal Affect, Appropriate Vitals/I&O's: Vital Signs Temp Pulse Resp BP Pulse Ox 99.8 F H 81 18 133/52 H 94 05/05/20 02:30 05/05/20 02:30 05/05/20 02:30 05/05/20 02:30 05/05/20 02:30 Oxygen Delivery Method Room Air Weight: 102.1 kg Body Mass Index (BMI) 38.6 Intake and Output for Last 24 Hours 05/03/20 05/04/20 05/05/20 23:59 23:59 23:59 Intake Total 640 / 640 200 / 200 Balance 640 / 640 200 / 200 Laboratory Results 05/04/20 15:30: WBC 12.3 H, RBC 3.65 L, Hgb 12.2, Hct 37.6, MCV 103.0 H, MCH 33.4 H, MCHC 32.4, RDW Std Deviation 46.6 H, RDW Coeff of Francisco 12.3, Plt Count 124 L, MPV 10.8, Immature Gran % (Auto) 0.700, Neut % (Auto) 94.4 H, Lymph % (Auto) 2.5 L, [place] % (Auto) 1.9, Eos % (Auto) 0.3, Baso % (Auto) 0.2, Absolute Neuts (auto) 11.6 H, Absolute Lymphs (auto) 0.31 L, Nucleated RBC % 0, Differential Comment SCANNED 05/04/20 15:30: Sodium 139, Potassium 3.6, Chloride 108 H, Carbon Dioxide 26.0, Anion Gap 5, BUN 16, Creatinine 0.84, Estim Creat Clear Calc 60.73, Est GFR (MDRD) Af Amer 88, Est GFR (MDRD) Non-Af 73, BUN/Creatinine Ratio 19.0, Glucose 118 H, Calcium 8.9, Total Bilirubin 0.50, AST 16, ALT 18, Alkaline Phosphatase 69, Total Protein 6.9, Albumin 3.0 L, Globulin 3.9, Albumin/Globulin Ratio 0.8 L 05/04/20 15:30: PT 15.2 H, INR 1.3, APTT 34.8 05/04/20 15:30: Lactic Acid 0.9 05/04/20 15:49: COVID-19 (ELISE) Not Detected 05/04/20 21:15: MRSA (PCR) Negative 05/05/20 06:43: WBC Pending, RBC Pending, Hgb Pending, Hct Pending, MCV Pending, MCH Pending, MCHC Pending, RDW Std Deviation Pending, RDW Coeff of Francisco Pending, Plt Count Pending, Neut % (Auto) Pending, Absolute Neuts (auto) Pending 05/05/20 06:43: Sodium Pending, Potassium Pending, Chloride Pending, Carbon Dioxide Pending, Anion Gap Pending, BUN Pending, Creatinine Pending, Est GFR (MDRD) Af Amer Pending, Est GFR (MDRD) Non-Af Pending, BUN/Creatinine Ratio Pending, Glucose Pending, Calcium Pending Current Medications Acetaminophen (Acetaminophen 325 Mg Tablet) 650 mg PO Q6H PRN PRN PRN Reason: Pain Score 1-10/Temp > 100.7 F Aspirin (Aspirin E.C. 81 Mg Tablet) 81 mg PO DAILYCM SERGO Enoxaparin Sodium (Enoxaparin 40 Mg/0.4 Ml Syringe) 40 mg SC DAILY SERGO Sodium Chloride () 250 mls @ 15 mls/hr IV .[id number] PRN PRN Reason: Saline Flush Sodium Chloride () 250 mls @ 15 mls/hr IV .[id number] PRN PRN Reason: Additional IVPB Infusion Vancomycin IV Pharmacy to Dose (1 ea/ Sodium Chloride) 500 mls @ 250 mls/hr IV PRN PRN; Protocol PRN Reason: Rx to Dose Vancomycin HCl (Vancomycin) 1,000 mg in 200 mls @ 200 mls/hr IV Q12H SREGO Last Infusion: 05/05/20 06:09 Dose: Infused Documented by: Ibuprofen (Ibuprofen 400 Mg Tablet) 400 mg PO Q4H PRN PRN PRN Reason: Pain Score 1-10/Temp > 100.7 F Lisinopril (Lisinopril 10 Mg Tablet) 10 mg PO DAILY SERGO Meclizine HCl (Meclizine Hcl 25 Mg Tablet) 25 mg PO 4X/DAY PRN PRN PRN Reason: Vertigo Multivitamins/Minerals (Multivitamins,Ther W-Minerals Tablet) [facility] Ondansetron HCl (Ondansetron Odt 4 Mg Tablet) 4 mg PO Q8H PRN PRN PRN Reason: NAUSEA Ondansetron HCl (Ondansetron 4 Mg/2 Ml Vial) 4 mg IV Q8H PRN PRN PRN Reason: NAUSEA/VOMITING Sodium Chloride (0.9% Saline Lock 10 Ml Syringe) 10 - 40 ml IV UD PRN PRN Reason: SALINE FLUSH Spironolactone (Spironolactone 50 Mg Tablet) 50 mg PO DAILY PRN PRN Reason: Swelling Medical Necessity - Tobacco Use Smoking Status: Never smoker Assessment/Plan All Active Problems (Last Reviewed 05/04/20 @ 15:[address] Anurag Hassan, DO) Cellulitis of leg, left (Acute) 1. Sepsis secondary to left lower extremity cellulitis, present on admission On IV vancomycin, received Zosyn in the ED. MRSA screen was negative Would discontinue IV vancomycin and continue on IV Zosyn, elevate lower extremity 2. Hypertension, controlled, continue lisinopril and spironolactone 3. Chronic vertigo, stable, continue meclizine as needed 4. DVT prophylaxis with Lovenox subcu Inpatient E&M: [id number] [facility] Hosp L2
[2020-05-05 07:32] LABS: Absolute Neutrophil Count 8.3 X10^3/uL (2.0-7.7); Basophil# 0.02 X10^3/uL; Basophil% 0.2 % (0-1); Hematocrit 35.4 % (37-47); Hemoglobin 11.6 g/dL (12.0-15.0); Lymphocyte % 7.2 % (19-41); Mean Corp Hgb Conc 32.8 g/dL (32-36); Mean Corpuscular Hgb 33.5 pg (27.0-32.0); Mean Corpuscular Volume 102.3 fL (81-99); Monocyte# 0.63 X10^3/uL; Monocyte% 6.5 % (0-10); NRBC Flagged by Analyzer 0 % (0-5); Neutrophil # 8.28 X10^3/uL (2.7-7.7); Neutrophil % 85.2 % (47-70); POSITIVE MORPHOLOGY YES; Platelet Count 105 K/mm3 (150-450); RBC Distribution Width CV 12.5 % (11.6-14.6); RBC Distribution Width SD 46.7 fl (35.1-43.9); Red Blood Count 3.46 M/mm3 (4.2-5.4); White Blood Count 9.7 K/mm3 (4.4-11.0)
[2020-05-05 07:45] LABS: Differential Indicated SCAN CRITERIA MET
[2020-05-05 07:56] LABS: Anion Gap 5 (5-15); BUN 13 mg/dL (7-18); BUN/Creat Ratio 16.2 RATIO (10-20); Calcium,Total 8.5 mg/dL (8.5-10.1); Chloride 107 mmol/L (98-107); EST Glomerular Filtration Rate 77 mL/min (>60); Est Glom Filt Rate - Afr Amer 93 mL/min (>60); Estimated Creatinine Clearance 63.77 ml/min; Glucose 116 mg/dL (74-106); Potassium 3.4 mmol/L (3.5-5.1); Sodium Level 136 mmol/L (136-145)
[2020-05-05 08:20] LABS: Differential Comment SCANNED
[2020-05-05 08:23] LABS: Magnesium 1.7 mg/dL (1.6-2.6)
[2020-05-05 08:30] VITALS: BP 134/56; PULSE 85; RESP 16; TEMP 38.3; O2SAT 94
[2020-05-05] MEDS: Acetaminophen 325 MG Tablet 650 MG PO (08:53)
[2020-05-05 10:01] VITALS: TEMP 37.6
[2020-05-05] MEDS: Aspirin E.C. 81 MG Tablet PO (10:53)
[2020-05-05] MEDS: Multivitamins,Ther W-Minerals Tablet 1 TABLET PO (10:53)
[2020-05-05] MEDS: Enoxaparin 40 MG/0.4 ML Syringe SC (10:54)
[2020-05-05] MEDS: Lisinopril 10 MG Tablet PO (10:56)
--- NOTE | 2020-05-05 11:35 | CASEMGMT ---
RN CM Face to Face with patient for initial transition planning/care coordination assessment. RN CM introduced self and role at [facility]. Patient lying in bed, alert and oriented. Patient willing to participate in assessment and is able to answer all questions appropriately. Care providers, pharmacy, and demographics verified. Patient wishes to discharge home, denies need for home health at this time. Patient states she has no further needs or concerns at this time. CM to follow for discharge planning needs that may arise. PCP: Velia Specialists: none Preferred Pharmacy: [facility] Insurance: [place] Prescription Benefit: yes Living Will/HPOA: yes, [place] Teran LNOK: Living Arrangements: Patient lives with in a 2 story home with bed and bath on first floor. No steps to enter the home. Patient states she is independent at home. Transportation: self/ DME/HHC: Patient states she has cane and raised toilet at home. Patient denies need for HHC at discharge. Disposition Plan: Patient to discharge home with family support and follow-up plans in place. Jennifer MATHEWS, RN, CM
[2020-05-05 13:15] VITALS: BP 143/72; PULSE 75; RESP 18; TEMP 36.9; O2SAT 98
[2020-05-05 20:19] VITALS: BP 139/59; PULSE 78; RESP 18; TEMP 37.2; O2SAT 100
[2020-05-06 01:24] VITALS: BP 129/64; PULSE 80; RESP 18; TEMP 37.7; O2SAT 95
[2020-05-06] MEDS: Senna/Docusate Sodium 1 Tablet PO ×2 (01:25→10:50)
[2020-05-06 05:33] VITALS: BP 141/72; PULSE 73; RESP 18; TEMP 37.5; O2SAT 97
[2020-05-06] MEDS: Acetaminophen 325 MG Tablet 650 MG PO ×2 (05:36→21:36)
[2020-05-06 06:31] LABS: Absolute Lymphocyte Count 0.71 X10^3/uL (0.83-4.51); Absolute Neutrophil Count 6.6 X10^3/uL (2.0-7.7); Basophil# 0.02 X10^3/uL; Basophil% 0.3 % (0-1); Eosinophil# 0.04 X10^3/uL; Eosinophils% 0.5 % (0-5); Hematocrit 35.8 % (37-47); Hemoglobin 11.6 g/dL (12.0-15.0); Lymphocyte # 0.71 X10^3/ul (4.0); Lymphocyte % 8.9 % (19-41); Mean Corp Hgb Conc 32.4 g/dL (32-36); Mean Corpuscular Hgb 34.1 pg (27.0-32.0); Mean Corpuscular Volume 105.3 fL (81-99); Monocyte# 0.56 X10^3/uL; NRBC Flagged by Analyzer 0 % (0-5); Neutrophil # 6.62 X10^3/uL (2.7-7.7); Neutrophil % 82.7 % (47-70); POSITIVE COUNT YES; Platelet Count 95 K/mm3 (150-450); RBC Distribution Width CV 12.2 % (11.6-14.6); RBC Distribution Width SD 47.6 fl (35.1-43.9)
[2020-05-06 06:36] LABS: Differential Indicated SCAN CRITERIA MET
[2020-05-06 06:43] LABS: ALB/GLOB Ratio 0.6 RATIO (0.9-2.4); AST(SGOT) 13 U/L (15-37); Alanine Aminotransfer ALT/SGPT 13 U/L (13-56); Albumin, Serum 2.4 g/dL (3.2-5.0); Alkaline Phosphatase 66 U/L (45-117); Anion Gap 4 (5-15); BUN 10 mg/dL (7-18); BUN/Creat Ratio 14.7 RATIO (10-20); Chloride 109 mmol/L (98-107); Creatinine, Serum 0.68 mg/dL (0.55-1.02); EST Glomerular Filtration Rate 93 mL/min (>60); Est Glom Filt Rate - Afr Amer 113 mL/min (>60); Estimated Creatinine Clearance 75.02 ml/min; Glucose 105 mg/dL (74-106); Potassium 3.7 mmol/L (3.5-5.1); Protein, Total 6.4 g/dL (6.4-8.2); Sodium Level 137 mmol/L (136-145)
[2020-05-06 07:10] LABS: Differential Comment SCANNED
[2020-05-06 08:46] VITALS: BP 121/59; PULSE 72; RESP 18; TEMP 37.2; O2SAT 96
[2020-05-06] MEDS: Aspirin E.C. 81 MG Tablet PO (10:48)
[2020-05-06] MEDS: Enoxaparin 40 MG/0.4 ML Syringe SC (10:49)
[2020-05-06] MEDS: Multivitamins,Ther W-Minerals Tablet 1 TABLET PO (10:49)
[2020-05-06] MEDS: Lisinopril 10 MG Tablet PO (10:50)
[2020-05-06 12:00] VITALS: BP 123/55; PULSE 82; RESP 18; TEMP 37; O2SAT 98
--- NOTE | 2020-05-06 16:05 | PCM.PN.HOSP ---
Patient Problems: Active and Suspected Problems (Last Reviewed 05/04/20 @ 15:[address] Anurag Hassan, DO) Cellulitis of leg, left (Acute) Reason for Visit: Follow-up on sepsis secondary to left lower extremity cellulitis Subjective: Patient was seen and examined. No fever seen over the last 24 hours. No nausea or vomiting. Her leg erythema appears to be the same. Objective: Physical exam: General: Alert, Cooperative, No apparent distress HEENT: Atraumatic, Normocephalic Oral: Moist Mucosa, No Gingival or Mucosal Lesions/ Ulcerations Neck: No Nodes, Thyroid Normal Size and Texture Lungs: Clear to auscultation, Normal air movement, No rhonchi, No wheeze Cardiovascular: Regular rate, Regular Rhythm, Normal S1, Normal S2, No murmurs Abdomen: Bowel Sounds Present, Soft, Non Tender, Non-Distended, No Hepato-splenomegaly Extremities: No Calf Tenderness, Edema Skin: Rash Present - erythema, light pink, on LLE anterior sauceda, below the knee. No induration, trace bilateral pedal edema Musculoskeletal: No Tenderness to Palpation of Joints or Extremities, No Muscle Wasting Psych/Mental Status: Normal Affect, Appropriate Vitals/I&O's: Vital Signs Temp Pulse Resp BP Pulse Ox 98.6 F 82 18 123/55 H 98 05/06/20 12:00 05/06/20 12:00 05/06/20 12:00 05/06/20 12:00 05/06/20 12:00 Oxygen Delivery Method Room Air Weight: 102.1 kg Body Mass Index (BMI) 38.6 Intake and Output for Last 24 Hours 05/04/20 05/05/20 05/06/20 23:59 23:59 23:59 Intake Total 640 / 640 877 / 877 377.75 / 377.75 Balance 640 / 640 877 / 877 377.75 / 377.75 Microbiology Past 72 Hours 05/04/20 15:30 Blood Culture (Wb) - Anticubital Right Blood Culture - Preliminary No growth in 48 hours. Laboratory Results 05/06/20 06:10: WBC 8.0, RBC 3.40 L, Hgb 11.6 L, Hct 35.8 L, MCV 105.3 H, MCH 34.1 H, MCHC 32.4, RDW Std Deviation 47.6 H, RDW Coeff of Francisco 12.2, Plt Count 95 L, MPV 11.0, Immature Gran % (Auto) 0.600, Neut % (Auto) 82.7 H, Lymph % (Auto) 8.9 L, [place] % (Auto) 7.0, Eos % (Auto) 0.5, Baso % (Auto) 0.3, Absolute Neuts (auto) 6.6, Absolute Lymphs (auto) 0.71 L, Nucleated RBC % 0, Differential Comment SCANNED 05/06/20 06:10: Sodium 137, Potassium 3.7, Chloride 109 H, Carbon Dioxide 24.0, Anion Gap 4 L, BUN 10, Creatinine 0.68, Estim Creat Clear Calc 75.02, Est GFR (MDRD) Af Amer 113, Est GFR (MDRD) Non-Af 93, BUN/Creatinine Ratio 14.7, Glucose 105, Calcium 9.0, Total Bilirubin 0.60, AST 13 L, ALT 13, Alkaline Phosphatase 66, Total Protein 6.4, Albumin 2.4 L, Globulin 4.0, Albumin/Globulin Ratio 0.6 L Current Medications Acetaminophen (Acetaminophen 325 Mg Tablet) 650 mg PO Q6H PRN PRN PRN Reason: Pain Score 1-10/Temp > 100.7 F Last Admin: 05/06/20 05:36 Dose: 650 mg Documented by: Aspirin (Aspirin E.C. 81 Mg Tablet) [facility] Last Admin: 05/06/20 10:48 Dose: 81 mg Documented by: Enoxaparin Sodium (Enoxaparin 40 Mg/0.4 Ml Syringe) 40 mg SC DAILY [facility] Last Admin: 05/06/20 10:49 Dose: 40 mg Documented by: Sodium Chloride () 250 mls @ 15 mls/hr IV .[id number] PRN PRN Reason: Saline Flush Last Infusion: 05/06/20 05:37 Dose: 0 mls/hr Documented by: Sodium Chloride () 250 mls @ 15 mls/hr IV .[id number] PRN PRN Reason: Additional IVPB Infusion Piperacillin Sod/Tazobactam (Sod 3.375 gm/ Sodium Chloride) 50 mls @ 12.5 mls/hr IV Q8 [facility] Last Admin: 05/06/20 13:29 Dose: 12.5 mls/hr Documented by: Ibuprofen (Ibuprofen 400 Mg Tablet) 400 mg PO Q4H PRN PRN PRN Reason: Pain Score 1-10/Temp > 100.7 F Lisinopril (Lisinopril 10 Mg Tablet) 10 mg PO DAILY [facility] Last Admin: 05/06/20 10:50 Dose: 10 mg Documented by: Meclizine HCl (Meclizine Hcl 25 Mg Tablet) 25 mg PO 4X/DAY PRN PRN PRN Reason: Vertigo Multivitamins/Minerals (Multivitamins,Ther W-Minerals Tablet) 1 tablet PO DAILYCM [facility] Last Admin: 05/06/20 10:49 Dose: 1 tablet Documented by: Ondansetron HCl (Ondansetron Odt 4 Mg Tablet) 4 mg PO Q8H PRN PRN PRN Reason: NAUSEA Ondansetron HCl (Ondansetron 4 Mg/2 Ml Vial) 4 mg IV Q8H PRN PRN PRN Reason: NAUSEA/VOMITING Senna/Docusate Sodium (Senna/Docusate Sodium 1 Tablet) 1 tablet PO BID [facility] Last Admin: 05/06/20 10:50 Dose: 1 tablet Documented by: Sodium Chloride (0.9% Saline Lock 10 Ml Syringe) 10 - 40 ml IV UD PRN PRN Reason: SALINE FLUSH Spironolactone (Spironolactone 50 Mg Tablet) 50 mg PO DAILY PRN PRN Reason: Swelling Medical Necessity - Tobacco Use Smoking Status: Never smoker Assessment/Plan All Active Problems (Last Reviewed 05/04/20 @ 15:[address] Anurag Hassan, DO) Cellulitis of leg, left (Acute) 1. Sepsis secondary to left lower extremity cellulitis, present on admission On IV Zosyn in the ED. MRSA screen was negative Continue on IV Zosyn, elevate lower extremity 2. Hypertension, controlled, continue lisinopril and spironolactone 3. Chronic vertigo, stable, continue meclizine as needed 4. DVT prophylaxis with Lovenox subcu Inpatient E&M: 33613 [facility] Hosp L2
[2020-05-06 20:00] VITALS: BP 127/54; PULSE 64; RESP 16; TEMP 37; O2SAT 100
[2020-05-07 02:15] VITALS: BP 135/77; PULSE 72; RESP 16; TEMP 36.8; O2SAT 100
[2020-05-07 05:39] LABS: Absolute Lymphocyte Count 0.94 X10^3/uL (0.83-4.51); Absolute Neutrophil Count 5.2 X10^3/uL (2.0-7.7); Basophil# 0.02 X10^3/uL; Basophil% 0.3 % (0-1); Eosinophil# 0.08 X10^3/uL; Eosinophils% 1.2 % (0-5); Hematocrit 38.2 % (37-47); Hemoglobin 12.8 g/dL (12.0-15.0); Lymphocyte # 0.94 X10^3/ul (4.0); Lymphocyte % 13.7 % (19-41); Mean Corp Hgb Conc 33.5 g/dL (32-36); Mean Corpuscular Hgb 34.3 pg (27.0-32.0); Mean Corpuscular Volume 102.4 fL (81-99); Mean Platelet Vol. 11.7 fl (6.2-12.0); Monocyte# 0.63 X10^3/uL; Monocyte% 9.2 % (0-10); NRBC Flagged by Analyzer 0 % (0-5); Neutrophil # 5.18 X10^3/uL (2.7-7.7); Neutrophil % 75.3 % (47-70); Platelet Count 101 K/mm3 (150-450); RBC Distribution Width CV 12.2 % (11.6-14.6); RBC Distribution Width SD 46.2 fl (35.1-43.9); Red Blood Count 3.73 M/mm3 (4.2-5.4); White Blood Count 6.9 K/mm3 (4.4-11.0)
[2020-05-07 06:02] LABS: ALB/GLOB Ratio 0.5 RATIO (0.9-2.4); AST(SGOT) 25 U/L (15-37); Alanine Aminotransfer ALT/SGPT 15 U/L (13-56); Albumin, Serum 2.2 g/dL (3.2-5.0); Alkaline Phosphatase 71 U/L (45-117); Anion Gap 5 (5-15); BUN 9 mg/dL (7-18); BUN/Creat Ratio 13.2 RATIO (10-20); Calcium,Total 8.8 mg/dL (8.5-10.1); Chloride 111 mmol/L (98-107); Creatinine, Serum 0.68 mg/dL (0.55-1.02); EST Glomerular Filtration Rate 93 mL/min (>60); Est Glom Filt Rate - Afr Amer 113 mL/min (>60); Estimated Creatinine Clearance 75.02 ml/min; Globulin 4.8 g/dL (2.2-4.2); Glucose 89 mg/dL (74-106); Potassium 4.1 mmol/L (3.5-5.1); Sodium Level 138 mmol/L (136-145)
[2020-05-07] MEDS: Acetaminophen 325 MG Tablet 650 MG PO (06:35)
[2020-05-07 08:06] VITALS: BP 121/55; PULSE 74; RESP 18; TEMP 37; O2SAT 97
[2020-05-07] MEDS: Multivitamins,Ther W-Minerals Tablet 1 TABLET PO (08:12)
[2020-05-07] MEDS: Aspirin E.C. 81 MG Tablet PO (08:12)
--- NOTE | 2020-05-07 09:32 | DCINST_ITS ---
- Discharge Diagnoses Current Active Problems: Current Active and Chronic Problems (Last Reviewed 05/04/20 @ 15:[address] Anurag Hassan, DO) Cellulitis of leg, left (Acute) Lymphedema (Chronic) History of bilateral knee replacement (Chronic) Right- 2004 Left- 03/2018 History of back surgery (Chronic) lower back- 08/2012 Hx of kidney removal (Chronic) Left- 2006 History of (Chronic) X2 Obesity (Chronic) Hypertension (Chronic) Varicose veins with inflammation (Chronic) Chronic venous insufficiency (Chronic) Pain In Right Leg (Chronic) Pain In Left Leg (Chronic) Edema of both legs (Chronic) Swelling of lower limb (Chronic) Reason(s) for Visit for Discharge Instructions: Left lower leg cellulitis You will use the following diet at home:: Cardiac Your food should be the consistency of: Regular Your liquids should be the consistency of: Regular/Thin Discharge Activity: Return to Normal Activity Call your doctor if your incision/area has: Increased Pain/ Swelling, Increased Redness Call your doctor if you observe: Fever of 101 or Higher Additional Instructions: Complete your antibiotics. Continue to elevate your left lower leg when you can. Let your doctor know if your have worsening swelling or redness. Allergies/Adverse Reactions: Allergies Sulfa (Sulfonamide Antibiotics) Allergy (Verified 05/04/20 12:27) Rash Medications to take at Discharge Spironolactone [Aldactone] 50 mg PO DAILY PRN 03/02/14 Lisinopril [Zestril] 10 mg PO DAILY 03/20/16 Multivit-Minerals/Folic Acid [One Daily Womens 50 Plus Tab] 1 tab PO DAILY 04/01/18 Ondansetron [Zofran Odt] 4 mg PO Q8H PRN PRN #10 tab 06/22/18 aspirin 81 mg tablet,delayed release 81 mg PO DAILY 07/01/18 Acetaminophen [Tylenol Tablet] 650 mg PO Q6H PRN PRN tablet 05/07/20 Cephalexin [Keflex] 500 mg PO 4X/DAY 5 Days #20 cap 05/07/20 Ibuprofen [Motrin] 400 mg PO Q4H PRN PRN tablet 05/07/20 The following prescriptions were given: Cephalexin [Keflex] 500 mg PO 4X/DAY 5 Days #20 cap Transmission Status: Pending to [id number] Primary Care Physician: Lorenzo Gunn MD [Primary Care Provider] - Please follow up with your Primary Care Physician in: within 2 weeks Test Results: Test results from this visit will be discussed in further detail at your follow- up appointment, if applicable. Proposed Discharge Date: 05/07/20
--- NOTE | 2020-05-07 09:35 | PCM.DC.SUM ---
Discharge Date and Diagnosis - Problem List Patient Problems: Active and Suspected Problems (Last Reviewed 05/04/20 @ 15:[address] Anurag Hassan DO) Cellulitis of leg, left (Acute) Date of Admission: 05/04/20 Date of Discharge: 05/07/20 - Primary Discharge Diagnosis Acute Problems: Active Problems (Last Reviewed 05/04/20 @ 15:[address] Anurag Hassan DO) Sepsis secondary to acute left lower cellulitis Recent COVID-19 infection - Secondary Discharge Diagnosis Chronic Problems: Chronic Problems (Last Reviewed 05/04/20 @ 15:[address] Anurag Hassan DO) Lymphedema (Chronic) History of bilateral knee replacement (Chronic) Right- 2004 Left- 03/2018 History of back surgery (Chronic) lower back- 08/2012 Hx of kidney removal (Chronic) Left- 2006 History of (Chronic) X2 Obesity (Chronic) Hypertension (Chronic) Varicose veins with inflammation (Chronic) Chronic venous insufficiency (Chronic) Pain In Right Leg (Chronic) Pain In Left Leg (Chronic) Edema of both legs (Chronic) Swelling of lower limb (Chronic) Hospital Course and Treatment Operations: None Procedures: None Summary of Care Provided: The patient is a 59 year old F past medical history of chronic lymphedema who presented with redness in the lower extremity. Patient denied any fever or chills. She had a significant left lower extremity erythema and differential warmth. She was started on Zosyn and vancomycin. Her MRSA PCR was negative. Patient was continued on IV Zosyn with some improvement in her erythema. Her WBC count improved from 12.3 to 6.9. Patient had hypokalemia during this admission that was replaced. She was discharged on oral Keflex for 5 more days making 1 week of antibiotics. Patient Problems: Active and Suspected Problems (Last Reviewed 05/04/20 @ 15:[address] Anurag Hassan DO) Cellulitis of leg, left (Acute) Subjective: Patient was seen and examined. She feels much improved. The erythema of her left leg is minimally improved. No fevers. Objective: Physical exam: General: Alert, Cooperative, No apparent distress HEENT: Atraumatic, Normocephalic Oral: Moist Mucosa, No Gingival or Mucosal Lesions/ Ulcerations Neck: No Nodes, Thyroid Normal Size and Texture Lungs: Clear to auscultation, Normal air movement, No rhonchi, No wheeze Cardiovascular: Regular rate, Regular Rhythm, Normal S1, Normal S2, No murmurs Abdomen: Bowel Sounds Present, Soft, Non Tender, Non-Distended, No Hepato-splenomegaly Extremities: No Calf Tenderness, Edema Skin: Rash Present - erythema, light pink, on LLE anterior sauceda, below the knee. minimal improvement in differential warmth. No induration, trace bilateral pedal edema Musculoskeletal: No Tenderness to Palpation of Joints or Extremities, No Muscle Wasting Psych/Mental Status: Normal Affect, Appropriate - Physical Exam Vitals/I&O's: Vital Signs Temp Pulse Resp BP Pulse Ox 98.6 F 74 18 121/55 H 97 05/07/20 08:06 05/07/20 08:06 05/07/20 08:06 05/07/20 08:06 05/07/20 08:06 Oxygen Delivery Method Room Air Weight: 102.1 kg Body Mass Index (BMI) 38.6 Intake and Output for Last 24 Hours 05/05/20 05/06/20 05/07/20 23:59 23:59 23:59 Intake Total 877 / 877 545.50 / 545.50 1097.5 / 1097.5 Balance 877 / 877 545.50 / 545.50 1097.5 / 1097.5 Microbiology Past 72 Hours 05/04/20 16:02 Blood Culture (Wb) - Anticubital Left Blood Culture - Preliminary No growth in 48 hours. 05/04/20 15:30 Blood Culture (Wb) - Anticubital Right Blood Culture - Preliminary No growth in 48 hours. Laboratory Results 05/07/20 05:00: WBC 6.9, RBC 3.73 L, Hgb 12.8, Hct 38.2, MCV 102.4 H, MCH 34.3 H, MCHC 33.5, RDW Std Deviation 46.2 H, RDW Coeff of Francisco 12.2, Plt Count 101 L, MPV 11.7, Immature Gran % (Auto) 0.300, Neut % (Auto) 75.3 H, Lymph % (Auto) 13.7 L, [place] % (Auto) 9.2, Eos % (Auto) 1.2, Baso % (Auto) 0.3, Absolute Neuts (auto) 5.2, Absolute Lymphs (auto) 0.94, Nucleated RBC % 0 05/07/20 05:00: Sodium 138, Potassium 4.1, Chloride 111 H, Carbon Dioxide 22.0, Anion Gap 5, BUN 9, Creatinine 0.68, Estim Creat Clear Calc 75.02, Est GFR (MDRD) Af Amer 113, Est GFR (MDRD) Non-Af 93, BUN/Creatinine Ratio 13.2, Glucose 89, Calcium 8.8, Total Bilirubin 0.70, AST 25, ALT 15, Alkaline Phosphatase 71, Total Protein 7.0, Albumin 2.2 L, Globulin 4.8 H, Albumin/Globulin Ratio 0.5 L Current Medications Acetaminophen (Acetaminophen 325 Mg Tablet) 650 mg PO Q6H PRN PRN PRN Reason: Pain Score 1-10/Temp > 100.7 F Last Admin: 05/07/20 06:35 Dose: 650 mg Documented by: Aspirin (Aspirin E.C. 81 Mg Tablet) [facility] Last Admin: 05/07/20 08:12 Dose: 81 mg Documented by: Enoxaparin Sodium (Enoxaparin 40 Mg/0.4 Ml Syringe) 40 mg SC DAILY [facility] Last Admin: 05/06/20 10:49 Dose: 40 mg Documented by: Sodium Chloride () 250 mls @ 15 mls/hr IV .[id number] PRN PRN Reason: Saline Flush Last Infusion: 05/07/20 06:35 Dose: Infused Documented by: Sodium Chloride () 250 mls @ 15 mls/hr IV .[id number] PRN PRN Reason: Additional IVPB Infusion Piperacillin Sod/Tazobactam (Sod 3.375 gm/ Sodium Chloride) 50 mls @ 12.5 mls/hr IV Q8 [facility] Last Admin: 05/07/20 06:35 Dose: 12.5 mls/hr Documented by: Ibuprofen (Ibuprofen 400 Mg Tablet) 400 mg PO Q4H PRN PRN PRN Reason: Pain Score 1-10/Temp > 100.7 F Lisinopril (Lisinopril 10 Mg Tablet) 10 mg PO DAILY [facility] Last Admin: 05/06/20 10:50 Dose: 10 mg Documented by: Meclizine HCl (Meclizine Hcl 25 Mg Tablet) 25 mg PO 4X/DAY PRN PRN PRN Reason: Vertigo Multivitamins/Minerals (Multivitamins,Ther W-Minerals Tablet) 1 tablet PO DAILYCM [facility] Last Admin: 05/07/20 08:12 Dose: 1 tablet Documented by: Ondansetron HCl (Ondansetron Odt 4 Mg Tablet) 4 mg PO Q8H PRN PRN PRN Reason: NAUSEA Ondansetron HCl (Ondansetron 4 Mg/2 Ml Vial) 4 mg IV Q8H PRN PRN PRN Reason: NAUSEA/VOMITING Senna/Docusate Sodium (Senna/Docusate Sodium 1 Tablet) 1 tablet PO BID [facility] Last Admin: 05/07/20 08:13 Dose: Not Given Documented by: Sodium Chloride (0.9% Saline Lock 10 Ml Syringe) 10 - 40 ml IV UD PRN PRN Reason: SALINE FLUSH Spironolactone (Spironolactone 50 Mg Tablet) 50 mg PO DAILY PRN PRN Reason: Swelling Discharge Diet: No Restrictions Discharge Activity: Return to Normal Activity Call your doctor if your incision/area has: Increased Pain/ Swelling, Increased Redness Call your doctor if you observe: Fever of 101 or Higher Home Medications: Medications to take at Discharge Spironolactone [Aldactone] 50 mg PO DAILY PRN 03/02/14 Lisinopril [Zestril] 10 mg PO DAILY 03/20/16 Multivit-Minerals/Folic Acid [One Daily Womens 50 Plus Tab] 1 tab PO DAILY 04/01/18 Ondansetron [Zofran Odt] 4 mg PO Q8H PRN PRN #10 tab 06/22/18 aspirin 81 mg tablet,delayed release 81 mg PO DAILY 07/01/18 Acetaminophen [Tylenol Tablet] 650 mg PO Q6H PRN PRN tab 05/07/20 Cephalexin [Keflex] 500 mg PO 4X/DAY 5 Days #20 cap 05/07/20 Ibuprofen [Motrin] 400 mg PO Q4H PRN PRN tab 05/07/20 Following Prescriptions Were Given to Patient: Cephalexin [Keflex] 500 mg PO 4X/DAY 5 Days #20 cap Transmission Status: Received by [id number] Primary Care Physician: Lorenzo Gunn MD [Primary Care Provider] - Please follow up with your Primary Care Physician in: within 2 weeks Disposition: Home Minutes spent on discharge:: 45 Patient Condition:: Stable Medical Necessity - Tobacco Use Smoking Status: Never smoker Tobacco Use: Non-smoker Meaningful Use Info Meaningful Use Diagnoses (Choose all that apply): None applicable Inpatient E&M: 11273 Disch Hosp
[2020-05-07] MEDS: Lisinopril 10 MG Tablet PO (09:40)
[2020-05-07 09:44] VITALS: BP 137/70; PULSE 69; RESP 18; TEMP 37; O2SAT 97
== END 2020-05-07 12:06 | disposition home or self-care (01) | DRG 872 ==
LOC: ED 15:18 → MS3 20:06
PROVIDERS: Emergency Provider Emergency Medicine; PCP Family Medicine; Visit Provider Internal Medicine
DX: A41.9 Sepsis, unspecified organism (principal); L03.116 Cellulitis of left lower limb; Z86.19 Personal history of other infectious and parasitic diseases; I10 Essential (primary) hypertension; Z79.899 Other long term (current) drug therapy; R42 Dizziness and giddiness; E87.6 Hypokalemia
CPT/HCPCS: 36415; 80048; 80053; 83605; 83735; 85025; 85610; 85730; 87040; 87635; 87641; 93971; 99283; J7040; J7050; A4216; U0002

== ENCOUNTER → 2020-05-20 09:45 | Outpatient (REF) | payer BC, SELFPAY ==
[2020-05-04 20:11] VITALS: BMI 38.6
== END ==
LOC: OLS.ACH 09:45
PROVIDERS: PCP Family Medicine; Visit Provider Family Medicine
DX: Z03.818 Encounter for observation for suspected exposure to other biological agents ruled out (principal)
CPT/HCPCS: 87635; U0003

== ENCOUNTER → 2020-05-24 | Outpatient (CLI) | payer BC, SELFPAY ==
[2020-05-04 20:11] VITALS: BMI 38.6
== END | disposition home or self-care (01) ==
LOC: LABSPEC 07:58
PROVIDERS: PCP Family Medicine; Referring Provider Family Medicine; Visit Provider Family Medicine
DX: Z03.818 Encounter for observation for suspected exposure to other biological agents ruled out (principal)
CPT/HCPCS: 87635; U0003

== ENCOUNTER → 2020-10-26 10:05 | Outpatient (CLI) | payer BC, SELFPAY ==
[2020-10-26 13:04] LABS: AST(SGOT) 18 U/L (15-37); Alanine Aminotransfer ALT/SGPT 17 U/L (13-56); Albumin, Serum 3.7 g/dL (3.2-5.0); Alkaline Phosphatase 94 U/L (45-117); Anion Gap 4 (5-15); BUN 16 mg/dL (7-18); BUN/Creat Ratio 22.6 RATIO (10-20); Calcium,Total 9.5 mg/dL (8.5-10.1); Chloride 108 mmol/L (98-107); Cholesterol 176 mg/dL (200); Creatinine, Serum 0.71 mg/dL (0.55-1.02); EST Glomerular Filtration Rate 89 mL/min (>60); Est Glom Filt Rate - Afr Amer 108 mL/min (>60); Globulin 3.6 g/dL (2.2-4.2); Glucose 90 mg/dL (74-106); High Density Lipoprotein 77 mg/dL; Potassium 4.1 mmol/L (3.5-5.1); Protein, Total 7.3 g/dL (6.4-8.2); Sodium Level 141 mmol/L (136-145); Triglycerides 70 mg/dL; Very Low Density Lipoprotein 14 mg/dL (5-40)
== END ==
PROVIDERS: PCP Family Medicine; Referring Provider Family Medicine; Visit Provider Family Medicine
DX: I10 Essential (primary) hypertension (principal)
CPT/HCPCS: 36415; 80053; 80061

== ENCOUNTER → 2021-04-26 10:24 | Outpatient (CLI) | payer BC, SELFPAY ==
[2021-04-26 12:27] LABS: ALB/GLOB Ratio 0.9 RATIO (0.9-2.4); AST(SGOT) 18 U/L (15-37); Alanine Aminotransfer ALT/SGPT 19 U/L (13-56); Albumin, Serum 3.5 g/dL (3.2-5.0); Alkaline Phosphatase 80 U/L (45-117); Anion Gap 3 (5-15); BUN 13 mg/dL (7-18); Calcium,Total 9.6 mg/dL (8.5-10.1); Chloride 108 mmol/L (98-107); Cholesterol 182 mg/dL (200); Creatinine, Serum 0.72 mg/dL (0.55-1.02); EST Glomerular Filtration Rate 87 mL/min (>60); Est Glom Filt Rate - Afr Amer 105 mL/min (>60); Globulin 3.9 g/dL (2.2-4.2); Glucose 87 mg/dL (74-106); High Density Lipoprotein 75 mg/dL; Potassium 4.3 mmol/L (3.5-5.1); Protein, Total 7.4 g/dL (6.4-8.2); Sodium Level 140 mmol/L (136-145); Triglycerides 72 mg/dL; Very Low Density Lipoprotein 14 mg/dL (5-40)
== END ==
PROVIDERS: PCP Family Medicine; Referring Provider Family Medicine; Visit Provider Family Medicine
DX: I10 Essential (primary) hypertension (principal)
CPT/HCPCS: 36415; 80053; 80061

== ENCOUNTER → 2021-11-06 | Outpatient (CLI) | payer OTHER, SELFPAY ==
[2021-11-06 15:24] LABS: Anion Gap 5 (5-15); BUN 14 mg/dL (7-18); BUN/Creat Ratio 21.1 RATIO (10-20); Calcium,Total 9.6 mg/dL (8.5-10.1); Chloride 109 mmol/L (98-107); Creatinine, Serum 0.66 mg/dL (0.55-1.02); EST Glomerular Filtration Rate 95 mL/min (>60); Est Glom Filt Rate - Afr Amer 115 mL/min (>60); Glucose 92 mg/dL (74-106); Potassium 4.7 mmol/L (3.5-5.1); Sodium Level 141 mmol/L (136-145)
== END | disposition home or self-care (01) ==
LOC: MFPLAB 11:29
PROVIDERS: PCP Family Medicine; Visit Provider Family Medicine
DX: I10 Essential (primary) hypertension (principal)
CPT/HCPCS: 36415; 80048

== ENCOUNTER → 2022-05-21 | Outpatient (CLI) | payer MEDICAID, SELFPAY ==
[2022-05-21 12:58] LABS: Anion Gap 4 (5-15); BUN 12 mg/dL (7-18); Calcium,Total 9.8 mg/dL (8.5-10.1); Chloride 109 mmol/L (98-107); Cholesterol 187 mg/dL (200); EST Glomerular Filtration Rate 89 mL/min (>60); Est Glom Filt Rate - Afr Amer 108 mL/min (>60); Glucose 92 mg/dL (74-106); High Density Lipoprotein 75 mg/dL; Potassium 4.6 mmol/L (3.5-5.1); Sodium Level 142 mmol/L (136-145); Triglycerides 83 mg/dL; Very Low Density Lipoprotein 17 mg/dL (5-40)
== END | disposition home or self-care (01) ==
LOC: MFPLAB 09:47
PROVIDERS: PCP Family Medicine; Visit Provider Family Medicine
DX: I10 Essential (primary) hypertension (principal); R60.9 Edema, unspecified
CPT/HCPCS: 36415; 80048; 80061

== ENCOUNTER → 2022-09-17 | Outpatient (CLI) | payer OTHER, SELFPAY ==
--- NOTE | 2022-09-17 14:02 | ECHOD_ITS ---
Reason For Study: Murmur Procedure This was a 2D Doppler, Color Flow transthoracic echocardiogram. Exam performed in department. Left Ventricle Normal LV size. Left ventricular systolic function is normal. The estimated ejection fraction is 60 %. Stage 1 diastolic dysfunction. Right Ventricle Normal RV size. Normal systolic function. Atria Normal left atrium. Normal right atrium. Mitral Valve Normal mitral valve. Tricuspid Valve Normal tricuspid valve. Mild to moderate (1-2+) tricuspid valve insufficiency. Pulmonary artery systolic pressure is 38 mmHg. Aortic Valve Normal aortic valve. Trisinus/trileaflet aortic valve. Pulmonic Valve Normal pulmonic valve. Great Vessels Normal aortic root. The pulmonary artery is normal size. Normal inferior vena cava. Pericardium/Pleural No pericardial effusion. MMode/2D Measurements & Calculations LVIDd: 5.2 cm IVSd: 1.1 cm Ao root diam: 3.0 cm LVIDs: 3.2 cm LVPWd: 0.84 cm LA dimension: 4.2 cm RVDd: 3.3 cm FS: 38.0 % LAV(MOD-bp): 66.3 ml LA A4 area: 20.3 cm2 RA A4 area: 16.9 cm2 LAV(MOD-bp) Indexed: 32.2 ml/m2 LAV(MOD-sp2): 72.4 ml LAV(MOD-sp4): 55.4 ml Time Measurements MV dec time: 0.33 sec Doppler Measurements & Calculations MV E max roberto: 63.3 cm/sec Lat Peak E' Roberto: 17.7 cm/sec Med Peak E' Roberto: 9.2 cm/sec MV A max roberto: 87.3 cm/sec E/E' lat: 3.6 E/E' med: 6.9 MV E/A: 0.73 MV V2 max: 112.2 cm/sec MV dec slope: 192.1 cm/sec2 Ao V2 max: 171.7 cm/sec MV max P.0 mmHg Ao max P.8 mmHg MV V2 mean: 53.7 cm/sec Ao V2 mean: 114.2 cm/sec MV mean P.4 mmHg Ao mean P.0 mmHg MV V2 VTI: 32.8 cm Ao V2 VTI: 36.1 cm AV (velocity ratio): 0.94 LV V1 max: 145.9 cm/sec PA V2 max: 146.2 cm/sec TR max roberto: 286.9 cm/sec LV V1 max P.5 mmHg PA V2 mean: 100.3 cm/sec TR max P.9 mmHg LV V1 mean P.5 mmHg LV V1 mean: 99.3 cm/sec LV V1 VTI: 33.9 cm ECHO/Echo Complete Interpretation Summary Normal LV size. Left ventricular systolic function is normal. The estimated ejection fraction is 60 %. Stage 1 diastolic dysfunction. Mild to moderate (1-2+) tricuspid valve insufficiency. Ordering Physician: Aileen [place] Performed By: Ron Joya RCS
== END | disposition home or self-care (01) ==
PROVIDERS: PCP Family Medicine; Visit Provider Nurse Practitioner Family
DX: R01.1 Cardiac murmur, unspecified (principal); R60.9 Edema, unspecified
CPT/HCPCS: 93306

== ENCOUNTER → 2022-10-16 | Outpatient (CLI) | payer OTHER, SELFPAY ==
[2022-10-16 13:07] LABS: Anion Gap 1 (5-15); BUN 12 mg/dL (7-18); BUN/Creat Ratio 16.1 RATIO (10-20); Calcium,Total 10.1 mg/dL (8.5-10.1); Chloride 108 mmol/L (98-107); Creatinine, Serum 0.74 mg/dL (0.55-1.02); EST Glomerular Filtration Rate 83 mL/min (>60); Est Glom Filt Rate - Afr Amer 101 mL/min (>60); Glucose 92 mg/dL (74-106); Potassium 4.4 mmol/L (3.5-5.1); Sodium Level 139 mmol/L (136-145); Thyroid Stim Hormone (TSH) 1.62 uIU/mL (0.358-3.74)
== END | disposition home or self-care (01) ==
LOC: LAB 11:56
PROVIDERS: PCP Family Medicine; Referring Provider Internal Medicine Cardiovascular Disease; Visit Provider Internal Medicine Cardiovascular Disease
DX: I36.1 Nonrheumatic tricuspid (valve) insufficiency (principal); I10 Essential (primary) hypertension; R01.1 Cardiac murmur, unspecified
CPT/HCPCS: 36415; 80048; 84443

== ENCOUNTER → 2022-10-26 | Outpatient (CLI) | payer OTHER, SELFPAY ==
[2022-10-26 10:02] LABS: Anion Gap 6 (5-15); BUN 17 mg/dL (7-18); BUN/Creat Ratio 21.4 RATIO (10-20); Calcium,Total 9.5 mg/dL (8.5-10.1); Chloride 110 mmol/L (98-107); Creatinine, Serum 0.79 mg/dL (0.55-1.02); EST Glomerular Filtration Rate 77 mL/min (>60); Est Glom Filt Rate - Afr Amer 94 mL/min (>60); Glucose 90 mg/dL (74-106); Sodium Level 144 mmol/L (136-145)
== END | disposition home or self-care (01) ==
LOC: LAB 09:02
PROVIDERS: PCP Family Medicine; Referring Provider Internal Medicine Cardiovascular Disease; Visit Provider Internal Medicine Cardiovascular Disease
DX: R01.1 Cardiac murmur, unspecified (principal); R60.0 Localized edema; I10 Essential (primary) hypertension
CPT/HCPCS: 36415; 80048

== ENCOUNTER → 2023-02-28 | Outpatient (CLI) | payer OTHER, SELFPAY ==
[2023-02-28 12:52] LABS: Anion Gap 4 (5-15); BUN 16 mg/dL (7-18); BUN/Creat Ratio 20.1 RATIO (10-20); Calcium,Total 9.6 mg/dL (8.5-10.1); Chloride 109 mmol/L (98-107); Cholesterol 175 mg/dL (200); EST Glomerular Filtration Rate 77 mL/min (>60); Est Glom Filt Rate - Afr Amer 93 mL/min (>60); Glucose 88 mg/dL (74-106); High Density Lipoprotein 69 mg/dL; Potassium 4.3 mmol/L (3.5-5.1); Sodium Level 141 mmol/L (136-145); Triglycerides 55 mg/dL; Very Low Density Lipoprotein 11 mg/dL (5-40)
[2023-02-28 12:54] LABS: Vitamin D,25 Hydroxy 45.3 ng/mL
== END | disposition home or self-care (01) ==
LOC: MFPLAB 09:59
PROVIDERS: PCP Family Medicine; Visit Provider Family Medicine
DX: Z00.00 Encounter for general adult medical examination without abnormal findings (principal); I10 Essential (primary) hypertension
CPT/HCPCS: 36415; 80048; 80061; 82306

== ENCOUNTER → 2024-03-05 | Outpatient (CLI) | payer MEDICARE, OTHER, SELFPAY ==
[2024-03-05 15:51] LABS: Anion Gap 3 (5-15); BUN 14 mg/dL (7-18); BUN/Creat Ratio 18.8 RATIO (10-20); Calcium,Total 9.7 mg/dL (8.5-10.1); Chloride 110 mmol/L (98-107); Cholesterol 163 mg/dL (200); Creatinine, Serum 0.75 mg/dL (0.55-1.02); EST Glomerular Filtration Rate 83 mL/min (>60); Est Glom Filt Rate - Afr Amer 100 mL/min (>60); Glucose 112 mg/dL (74-106); High Density Lipoprotein 72 mg/dL; Potassium 4.1 mmol/L (3.5-5.1); Sodium Level 142 mmol/L (136-145); Triglycerides 67 mg/dL; Very Low Density Lipoprotein 13 mg/dL (5-40)
== END | disposition home or self-care (01) ==
LOC: MFPLAB 11:55
PROVIDERS: PCP Family Medicine; Visit Provider Family Medicine
DX: Z00.00 Encounter for general adult medical examination without abnormal findings (principal)
CPT/HCPCS: 36415; 80048; 80061

== ENCOUNTER → 2024-06-04 | Outpatient (CLI) | payer MEDICARE, OTHER, SELFPAY ==
--- NOTE | 2024-06-04 14:49 | VDLE_ITS ---
Reason For Study: Right leg pain RIGHT LEFT GSV is normal. CFV is compressible, spontaneous, phasic, CFV is compressible, spontaneous, phasic, competent, and demonstrates normal competent and demonstrates normal augmentation. augmentation. FV is compressible, spontaneous, phasic, competent and demonstrates normal augmentation. POP V is compressible, spontaneous, phasic, competent and demonstrates normal augmentation. T/P Trunk is compressible. PTV is compressible. RT PerV is compressible, not well visualized. Procedure This is a venous duplex using B-mode, color flow and spectral Doppler. Exam performed in department. A preliminary report was called and/or faxed to [facility]. VL/Venous Duplex US, Unilateral Interpretation Summary Deep veins of the right lower extremity are patent and compressible segmentally . There is no evidence of right lower extremity deep vein thrombosis. Valvular competence santy ears intact within the proximal deep venous system on the right . The right great saphenous vein a ppears patent and compressible segmentally. The left common femoral vein is patent and compressib le . The right peroneal vein was not well visualized. Ordering Physician: Tasha Choi Referring Physician: Lorenzo Gunn Performed By: Jennifer Whalne RVT
== END | disposition home or self-care (01) ==
PROVIDERS: PCP Family Medicine
DX: M79.604 Pain in right leg (principal)
CPT/HCPCS: 93971

== ENCOUNTER → 2024-06-12 | Outpatient (CLI) | payer MEDICARE, OTHER, SELFPAY ==
[2024-06-12 11:04] LABS: Anion Gap 6 (5-15); BUN 9 mg/dL (7-18); BUN/Creat Ratio 7.7 RATIO (10-20); Calcium,Total 9.6 mg/dL (8.5-10.1); Chloride 106 mmol/L (98-107); Creatinine, Serum 1.17 mg/dL (0.55-1.02); EST Glomerular Filtration Rate 49 mL/min (>60); Est Glom Filt Rate - Afr Amer 60 mL/min (>60); Glucose 91 mg/dL (74-106); Potassium 4.1 mmol/L (3.5-5.1); Sodium Level 139 mmol/L (136-145)
== END | disposition home or self-care (01) ==
LOC: MTLAB 07:45
PROVIDERS: PCP Family Medicine; Referring Provider Family Medicine; Visit Provider Family Medicine
DX: R60.9 Edema, unspecified (principal)
CPT/HCPCS: 36415; 80048

== ENCOUNTER 2024-06-18 10:12 | Emergency (ER) | payer MEDICARE, OTHER, SELFPAY ==
[2024-06-18 10:12] VITALS: BP 134/78; PULSE 75; RESP 14; TEMP 36.6; O2SAT 98; BMI 39.2
--- NOTE | 2024-06-18 11:07 | EX.ED.DYSGE1 ---
HPI History of Present Illness Chief Complaint: Cellulitis Informant: patient and spouse/S.O. Narrative Narrative: Presents here due to nausea vomiting for 2 days with upset stomach. No hematemesis. 4-5 episodes a day however mostly dry heaving. No diarrhea. Currently on antibiotics for cellulitis right lower extremity she saw her PCP 3 days ago. Apparently was on 4 antibiotics she had 1 removed. She cannot recall the name. However she brought her medications she is on Keflex, Bactrim and doxycycline. Denies any bloody emesis. 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 She is on diuretics for lymphedema of Lasix and metolazone. No diabetes history no fevers. She states right leg was a lot more red a week ago and is improving. However she is here for nausea and vomiting. [facility] Medical History Non-rheumatic tricuspid valve insufficiency Cardiac murmur Essential hypertension Cellulitis of leg, left Obesity Hypertension Varicose veins with inflammation Chronic venous insufficiency Pain In Right Leg Pain In Left Leg Edema of both legs Swelling of lower limb Home Medications ?Medication ?Instructions ?Recorded ?Last Taken ?Type acetaminophen 500 mg tablet 1,000 mg PO Q6H PRN fever or pain 10/15/22 Unknown History furosemide 40 mg tablet 40 mg PO DAILY 10/15/22 Unknown History lisinopril 20 mg tablet 20 mg PO DAILY #30 tabs 10/16/22 Unknown Rx multivitamin 1 tab PO DAILY 10/16/22 Unknown History cephalexin 500 mg capsule 500 mg PO TID 06/18/24 Unknown History doxycycline hyclate 100 mg capsule 100 mg PO BID 06/18/24 Unknown History famotidine 20 mg tablet 20 mg PO BID #10 TABLETS 06/18/24 Unknown Rx metolazone 5 mg tablet 5 mg PO DAILY 06/18/24 Unknown History ondansetron 4 mg disintegrating 4 mg PO Q8H PRN PRN Nausea #10 tabs 06/18/24 Unknown Rx tablet Allergy/AdvReac Type Severity Reaction Status Date / Time Sulfa (Sulfonamide Allergy Rash Verified 06/18/24 10:13 Antibiotics) Family History Father Hypertension Arthritis Brother Diabetes Surgical History History of nephrectomy, left (~2006) History of bilateral knee replacement History of back surgery History of Social History household members: spouse current occupational status: retired Smoking Status: Never smoker second hand exposure: No alcohol intake: never substance use type: does not use caffeine: Yes frequency: does not exercise ROS ROS ED Constitutional Constitutional ED: Denies chills, fever(s) or sweats ENT ENT ED: Denies sore throat Cardiovascular Cardiovascular: Denies chest pain, leg edema, palpitations or racing heartbeat Respiratory/Chest Respiratory/Chest: Denies cough, dyspnea or dyspnea on exertion Gastrointestinal Gastrointestinal: Reports nausea and vomiting; Denies abdominal pain or diarrhea Genitourinary Genitourinary ED: Denies dysuria, hematuria or urinary frequency Musculoskeletal Musculoskeletal: Denies back pain, extremity pain or neck pain Integumentary Denies rash or wounds Neurologic Neurologic: Denies headache(s), paresthesias or weakness EXAM Physical Exam Const Vital Signs: 06/18/24 10:12 06/18/24 12:12 06/18/24 14:00 Temperature 98 F Temperature Source Temporal Pulse Rate 75 77 74 Respiratory Rate 14 18 16 Blood Pressure 134/78 H 141/78 H 138/70 H Blood Pressure Mean 96 99 92 Pulse Ox 98 97 99 Oxygen Delivery Method Room Air 06/18/24 14:31 Temperature 97.9 F Temperature Source Pulse Rate 74 Respiratory Rate 16 Blood Pressure 138/70 H Blood Pressure Mean 92 Pulse Ox 99 Oxygen Delivery Method Positive well nourished and well developed General Appearance ED: well developed and NAD HEENT Reports moist mucous membranes normocephalic and atraumatic Eyes General Eye ED: Yes normal appearance of both eyes Neck full ROM Chest Wall Chest: Negative for tenderness Resp normal respiratory effort and normal air movement Effort and Inspection: symmetric chest movement; Negative for respiratory distress Cardio regular rate, regular rhythm and no murmurs Peripheral Pulses: pulses 2+ throughout GI normal to inspection, nondistended, normoactive bowel sounds and non-tender GI Narrative: Negative Saldana's or McBurney's tenderness. Palpation: Negative for guarding or rebound tenderness present Extremity normal to inspection Extremity Narrative: 1+ lymphedema lower extremities. Right leg mild erythema of the right distal two thirds of the leg however all would jasmeet during palpation. There is no drainage. No calf tenderness. Pulses intact distally. General Extremety ED: Yes edema; Negative for tenderness General Extremity: edema Neuro oriented x3 and no sensory deficits noted Sensorium / Orientation: awake and alert Skin no rashes or lesions noted and no wounds MDM MDM MDM Narrative Medical decision making narrative: Interventions / MDM: Differential diagnosis: Gastritis, nausea and vomiting, lymphedema Diagnosis considered but do not suspect: N/A My EKG interpretation: N/A Imaging independently reviewed and interpreted by myself: N/A External documents reviewed: N/A Test considered but not ordered:N/A ED course: Patient appears to have resolving cellulitis which she reported extremely red a week ago. Currently lymphedema with blanching. Symptoms brings her in his nausea and vomiting with no hematemesis. She is on Bactrim therefore we will check her renal function. Discussed doxycycline can cause GI upset. Discussed she does not need both of these antibiotics. Will check labs, IV fluids, Zofran and Pepcid. Will reevaluate. Patient with mild renal sufficiency with creatinine 1.47 up from 1.5 she was given fluids. Clinically was feeling better tolerating oral fluids. Discussed with her she will stop her Bactrim again. She will finish her Keflex and doxycycline. She will follow-up with her PCP recheck labs. Prescription Zofran sent to her pharmacy. All questions were answered. Rest patient significant other Re-evaluation: stable Disposition discussed with patient/family/significant other: Case discussed with consulting clinician: N/A This note was generated with [employer] dictation software. It may contain incorrect words, spelling, and punctuation that were not noted in checking the note before signing. Lab Data Attestation: I reviewed the patient's lab results. Labs: Laboratory Results - last 24 hr 06/18/24 11:20 WBC 6.1 RBC 4.07 L Hgb 14.1 Hct 42.2 MCV 103.7 H MCH 34.6 H MCHC 33.4 RDW Std Deviation 46.2 H RDW Coeff of Francisco 12.0 Plt Count 250 MPV 10.2 Immature Gran % (Auto) 0.500 Neut % (Auto) 67.0 Lymph % (Auto) 22.1 [place] % (Auto) 8.6 Eos % (Auto) 0.8 Baso % (Auto) 1.0 Absolute Neuts (auto) 4.1 Absolute Lymphs (auto) 1.36 Nucleated RBC % 0 Sodium 132 L Potassium 4.4 Chloride 101 Carbon Dioxide 24.0 Anion Gap 7 BUN 22 H Creatinine 1.47 H Estim Creat Clear Calc 44.13 Est GFR (MDRD) Af Amer 46 L Est GFR (MDRD) Non-Af 38 L BUN/Creatinine Ratio 15.0 Glucose 104 Calcium 11.1 H Discharge Plan Triage Chief Complaint: Cellulitis ED Provider: Rex Apple Dx/Rx/DC Orders Clinical Impression: Nausea & vomiting, Lymphedema, Acute renal insufficiency Instructions: ED Vomiting (Adult), ED Renal Insufficiency Prescriptions: New famotidine 20 mg tablet 20 mg PO BID Qty: 10 0RF ondansetron 4 mg tablet,disintegrating 4 mg PO Q8H PRN PRN (Reason: Nausea) Qty: 10 0RF Discontinued sulfamethoxazole-trimethoprim 800-160 mg tablet 2 tab PO BID No Action multivitamin Tablet 1 tab PO DAILY lisinopril 20 mg tablet 20 mg PO DAILY Qty: 30 12RF furosemide 40 mg tablet 40 mg PO DAILY acetaminophen 500 mg tablet 1,000 mg PO Q6H PRN (Reason: fever or pain) doxycycline hyclate 100 mg capsule 100 mg PO BID metolazone 5 mg tablet 5 mg PO DAILY cephalexin 500 mg capsule 500 mg PO TID Primary Care Provider: Lorenzo Gunn Referrals: Lorenzo Gunn MD [Primary Care Provider] - 1 Week Activity Restrictions/Additional Instructions: Your creatinine 1.47 today up from 1.17. You are given a liter of fluids. White count normal. Stop your Bactrim (sulfamethoxazole-trimethoprim), continue your cephalexin and your doxycycline. Cellulitis appears to be improving. Continue oral fluids at home follow-up with your doctor for recheck labs. Print Language: Nauruan Disposition Disposition: Home, Self Care Discharge Date/Time: 06/18/24 14:31
[2024-06-18 11:32] LABS: Absolute Lymphocyte Count 1.36 X10^3/uL (0.83-4.51); Absolute Neutrophil Count 4.1 X10^3/uL (2.0-7.7); Basophil# 0.06 X10^3/uL; Eosinophil# 0.05 X10^3/uL; Eosinophils% 0.8 % (0-5); Hematocrit 42.2 % (37-47); Hemoglobin 14.1 g/dL (12.0-15.0); Lymphocyte # 1.36 X10^3/ul (0.83-4.51); Lymphocyte % 22.1 % (19-41); Mean Corp Hgb Conc 33.4 g/dL (32-36); Mean Corpuscular Hgb 34.6 pg (27.0-32.0); Mean Corpuscular Volume 103.7 fL (81-99); Mean Platelet Vol. 10.2 fl (6.2-12.0); Monocyte# 0.53 X10^3/uL; Monocyte% 8.6 % (0-10); NRBC Flagged by Analyzer 0 % (0-5); Neutrophil # 4.11 X10^3/uL (2.7-7.7); Platelet Count 250 K/mm3 (150-450); RBC Distribution Width SD 46.2 fl (35.1-43.9); Red Blood Count 4.07 M/mm3 (4.2-5.4); White Blood Count 6.1 K/mm3 (4.4-11.0)
[2024-06-18] MEDS: Famotidine 200 MG/20 ML MDV 20 MG in 0.9% Normal Saline (Pres. free 8 ML 300 MG IV (11:38)
[2024-06-18] MEDS: 0.9% Normal Saline (1000mL) 1,000 ML 1000 ML IV (11:38)
[2024-06-18] MEDS: Ondansetron 4 MG/2 ML Vial IV (11:38)
[2024-06-18 11:52] LABS: Anion Gap 7 (5-15); BUN 22 mg/dL (7-18); Calcium,Total 11.1 mg/dL (8.5-10.1); Chloride 101 mmol/L (98-107); Creatinine, Serum 1.47 mg/dL (0.55-1.02); EST Glomerular Filtration Rate 38 mL/min (>60); Est Glom Filt Rate - Afr Amer 46 mL/min (>60); Estimated Creatinine Clearance 44.13 ml/min; Glucose 104 mg/dL (74-106); Potassium 4.4 mmol/L (3.5-5.1); Sodium Level 132 mmol/L (136-145)
[2024-06-18 12:12] VITALS: BP 141/78; PULSE 77; RESP 18; O2SAT 97
[2024-06-18 14:00] VITALS: BP 138/70; PULSE 74; RESP 16; O2SAT 99
[2024-06-18 14:31] VITALS: BP 138/70; PULSE 74; RESP 16; TEMP 36.6; O2SAT 99
== END 2024-06-18 14:31 | disposition home or self-care (01) ==
PROVIDERS: Emergency Provider Emergency Medicine; PCP Family Medicine; Visit Provider Emergency Medicine
DX: R11.2 Nausea with vomiting, unspecified (principal); I89.0 Lymphedema, not elsewhere classified; N28.9 Disorder of kidney and ureter, unspecified; I10 Essential (primary) hypertension; Z79.899 Other long term (current) drug therapy; L03.115 Cellulitis of right lower limb
CPT/HCPCS: 80048; 85025; 96361; 96374; 96375; 99283; J2405

== ENCOUNTER 2024-07-06 09:30 | Emergency (ER) | payer MEDICARE, OTHER, SELFPAY ==
[2024-07-06 09:32] VITALS: BP 137/83; PULSE 84; RESP 18; TEMP 36.7; O2SAT 100; BMI 41.5
--- NOTE | 2024-07-06 10:23 | EX.ED.DYSGE1 ---
HPI History of Present Illness Chief Complaint: GI Bleed Narrative Narrative: Chief complaint and HPI: Bright red blood per rectum. 64-year-old female with past medical history of constipation, HTN, tricuspid insufficiency presents for evaluation of bright red blood per rectum. Patient states that she intermittently suffers from constipation. She states she supposed to be taking MiraLAX but does not take this regularly. She states for the past several months she has been suffering from constipation but has not spoke with her physician for this. Patient states yesterday she had nonbloody diarrhea. She states today she had a small constipated stool in which she saw bright red blood in the toilet and then again a blood clot in her depends. She denies any fever, chills, shortness of breath, chest pain, lightheadedness, abdominal pain, nausea, vomiting. Patient states she has a history of a colonoscopy 5 years ago. She believes her colonoscopy was unremarkable. No history of diverticulosis or diverticulitis. Review of systems: See HPI Medications: As listed on the chart Allergies: As listed on the chart PFSH: Per chart Vital signs: As listed on the chart. Reviewed. Physical exam: Gen: A&O x3, NAD Head: Normocephalic, atraumatic Eyes: No sclera icterus, conjunctiva clear ENT: Moist mucous membranes Neck: Trachea midline, No JVD CV: RRR, no murmurs, no peripheral edema Resp: Lungs CTA BL, no w/r/c GI: Abd soft, non-distended, non-tender, no r/r/g Rectal: Normal external examination. No evidence of hemorrhoids or fissures. Normal tone and sensation. No masses, fluctuance, or tenderness. No pain out of proportion. No stool but gloved finger was mildly bloody. Musc: Full ROM, no deformity Skin: Warm, dry Neuro: Alert, oriented, grossly intact, sensation intact Psych: Cooperative, appropriate mood and affect [facility] Medical History Non-rheumatic tricuspid valve insufficiency Cardiac murmur Essential hypertension Cellulitis of leg, left Obesity Hypertension Varicose veins with inflammation Chronic venous insufficiency Pain In Right Leg Pain In Left Leg Edema of both legs Swelling of lower limb Home Medications ?Medication ?Instructions ?Recorded ?Last Taken ?Type acetaminophen 500 mg tablet 1,000 mg PO Q6H PRN fever or pain 10/15/22 Unknown History furosemide 40 mg tablet 40 mg PO DAILY 10/15/22 07/06/24 History lisinopril 20 mg tablet 20 mg PO DAILY #30 tabs 10/16/22 07/05/24 Rx multivitamin 1 tab PO DAILY 10/16/22 07/05/24 History spironolactone 50 mg tablet 50 mg PO DAILY 07/06/24 07/06/24 History Allergy/AdvReac Type Severity Reaction Status Date / Time Sulfa (Sulfonamide Allergy Rash Verified 07/06/24 09:32 Antibiotics) Family History Father Hypertension Arthritis Brother Diabetes Surgical History History of nephrectomy, left (~2006) History of bilateral knee replacement History of back surgery History of Social History household members: spouse current occupational status: retired Smoking Status: Never smoker second hand exposure: No alcohol intake: never substance use type: does not use caffeine: Yes frequency: does not exercise EXAM Physical Exam Const Vital Signs: 07/06/24 09:32 07/06/24 11:32 07/06/24 13:00 Temperature 98.1 F Temperature Source Oral Pulse Rate 84 79 80 Respiratory Rate 18 16 16 Blood Pressure 137/83 H 133/84 H 143/76 H Blood Pressure Mean 101 100 98 Pulse Ox 100 98 99 Oxygen Delivery Method Room Air Room Air 07/06/24 14:25 Temperature 98 F Temperature Source Pulse Rate 78 Respiratory Rate 16 Blood Pressure 136/78 H Blood Pressure Mean 97 Pulse Ox 97 Oxygen Delivery Method MDM MDM MDM Narrative Medical decision making narrative: 64-year-old female with past medical history of constipation, HTN, tricuspid insufficiency presents for evaluation of bright red blood per rectum. Differential diagnosis includes but is not limited to lower GI bleed, constipation, diverticulosis, diverticulitis, electrolyte abnormality, anemia. Patient not endorsing any abdominal pain. Vital stable. Basic labs ordered with CT abdomen pelvis. CBC without leukocytosis or anemia. Patient has thrombocytopenia at 135. On chart review she has a history of thrombocytopenia. BMP with mild renal insufficiency this is downtrending from May. CT abdomen pelvis shows circumferential wall thickening with narrowing of the lumen involving the descending colon distal to the splenic flexure down to the sigmoid colon. Suggestive of colitis. Diverticulosis without diverticulitis. Patient is status post left nephrectomy. Patient did not reveal to me that she had a history of a nephrectomy. NS bolus ordered given that she received contrast. Upon talking to the patient she does endorse nephrectomy in the past. I did educate her that in the future she needs to let the physicians taking care of her know this as she received contrast with one kidney. She was educated to continue hydration over the next couple days and that she will be given fluid here in the emergency department. She confirmed understanding. She will need to have her creatinine repeated outpatient in couple days. She confirmed understanding. Patient still not endorsing any abdominal pain. She states that she did have a small bowel movement here in the emergency department with minimal bleeding. She is asymptomatic. Given her diagnosis of colitis, Dr. Shelton with GI was consulted and patient was discussed. Suspect ischemic colitis. Unknown source. Okay for discharge home. Follow-up outpatient for likely colonoscopy. Agrees no need for antibiotics at this time. Patient was updated of all of the recommendations and confirmed understand the plan. She is comfortable discharging home. Strict return precautions were given. She confirmed understanding the plan. Impression: 1. Colonic colitis, suspect ischemic 2. Lower GI bleed, secondary to number #1 3. Renal insufficiency 4. Thrombocytopenia Lab Data Labs: Laboratory Results - last 24 hr 07/06/24 07/06/24 07/06/24 10:35 10:35 11:00 WBC Cancelled 10.0 Corrected WBC Cancelled RBC Cancelled 3.82 L Hgb Cancelled 13.2 Hct Cancelled 39.1 MCV Cancelled 102.4 H MCH Cancelled 34.6 H MCHC Cancelled 33.8 RDW Std Deviation Cancelled 46.0 H RDW Coeff of Francisco Cancelled 12.2 Plt Count Cancelled 135 L MPV Cancelled 10.7 Immature Gran % (Auto) Cancelled 0.300 Neut % (Auto) Cancelled 76.6 H Lymph % (Auto) Cancelled 15.0 L [place] % (Auto) Cancelled 6.7 Eos % (Auto) Cancelled 0.9 Baso % (Auto) Cancelled 0.5 Absolute Neuts (auto) Cancelled 7.7 Absolute Lymphs (auto) Cancelled 1.50 Total Counted Cancelled Neutrophils % (Manual) Cancelled Band Neutrophils % Cancelled Lymphocytes % (Manual) Cancelled Monocytes % (Manual) Cancelled Eosinophils % (Manual) Cancelled Basophils % (Manual) Cancelled Metamyelocytes % Cancelled Myelocytes % Cancelled Promyelocytes % Cancelled Blast Cells % Cancelled Plasma Cell % (Manual) Cancelled Other Cells % Cancelled Nucleated RBC % Cancelled 0 Nucleated RBCs/100 WBC Cancelled Differential Comment Cancelled Diff Path Review Cancelled Hypersegmented Neuts Cancelled Atypical Lymphocytes Cancelled Reactive Lymphocytes Cancelled Smudge Cells Cancelled Toxic Granulation Cancelled Toxic Vacuolation Cancelled Dohle Bodies Cancelled Boubacar Rods Cancelled Platelet Estimate Cancelled Plt Morphology Comment Cancelled RBC Morphology Cancelled Cancelled Polychromasia Cancelled Hypochromasia Cancelled Basophilic Stippling Cancelled Anisocytosis Cancelled Microcytosis Cancelled Macrocytosis Cancelled Spherocytes Cancelled Sickle Cells Cancelled Target Cells Cancelled Tear Drop Cells Cancelled Ovalocytes Cancelled Stomatocytes Cancelled [place] Bodies Cancelled Formoso Cells Cancelled Bite Cells Cancelled Crenated Cell Cancelled Acanthocytes (Spur) Cancelled Rouleaux Cancelled Schistocytes Cancelled Sodium 136 Potassium 3.9 Chloride 103 Carbon Dioxide 26.0 Anion Gap 7 BUN 22 H Creatinine 1.07 H Estim Creat Clear Calc 62.64 Est GFR (MDRD) Af Amer 66 Est GFR (MDRD) Non-Af 55 L BUN/Creatinine Ratio 20.6 H Glucose 102 Calcium 10.1 Radiography Diagnostic Testing: Clinical Impression(s) from Imaging Studies Abdomen/Pelvis CT 07/06/24 11:20 IMPRESSION: Findings suggestive of colitis of the descending colon as described. Sigmoid diverticulosis with no radiographic evidence of diverticulitis. Status post left nephrectomy. Electronically Signed: Roberto Marion MD at 12:04 EST , Discharge Plan Triage Chief Complaint: GI Bleed ED Provider: Ron Harris Dx/Rx/DC Orders Clinical Impression: Acute lower gastrointestinal bleeding, Ischemic colitis Instructions: GI Bleeding Causes and Tests, ED Understanding Colitis, ED Diverticulosis Prescriptions: No Action multivitamin Tablet 1 tab PO DAILY lisinopril 20 mg tablet 20 mg PO DAILY Qty: 30 12RF furosemide 40 mg tablet 40 mg PO DAILY acetaminophen 500 mg tablet 1,000 mg PO Q6H PRN (Reason: fever or pain) spironolactone 50 mg tablet 50 mg PO DAILY Primary Care Provider: Lorenzo Gunn Referrals: Lorenzo Gunn MD [Primary Care Provider] - 3-5 Days FriendDavid DO [Med Staff - Active Staff] - 3-5 Days Activity Restrictions/Additional Instructions: Call and schedule an appointment with the GI physician listed above. Return back to the ED if symptoms change or worsen such as worsening bleeding, lightheadedness, abdominal pain, nausea, vomiting, diarrhea, inability to eat Print Language: Urdu Disposition Disposition: Home, Self Care Discharge Date/Time: 07/06/24 14:33
[2024-07-06 11:12] LABS: Anion Gap 7 (5-15); BUN 22 mg/dL (7-18); BUN/Creat Ratio 20.6 RATIO (10-20); Calcium,Total 10.1 mg/dL (8.5-10.1); Chloride 103 mmol/L (98-107); Creatinine, Serum 1.07 mg/dL (0.55-1.02); EST Glomerular Filtration Rate 55 mL/min (>60); Est Glom Filt Rate - Afr Amer 66 mL/min (>60); Estimated Creatinine Clearance 62.64 ml/min; Glucose 102 mg/dL (74-106); Potassium 3.9 mmol/L (3.5-5.1); Sodium Level 136 mmol/L (136-145)
[2024-07-06 11:16] LABS: Absolute Neutrophil Count 7.7 X10^3/uL (2.0-7.7); Basophil# 0.05 X10^3/uL; Basophil% 0.5 % (0-1); Eosinophil# 0.09 X10^3/uL; Eosinophils% 0.9 % (0-5); Hematocrit 39.1 % (37-47); Hemoglobin 13.2 g/dL (12.0-15.0); Mean Corp Hgb Conc 33.8 g/dL (32-36); Mean Corpuscular Hgb 34.6 pg (27.0-32.0); Mean Corpuscular Volume 102.4 fL (81-99); Mean Platelet Vol. 10.7 fl (6.2-12.0); Monocyte# 0.67 X10^3/uL; Monocyte% 6.7 % (0-10); NRBC Flagged by Analyzer 0 % (0-5); Neutrophil # 7.69 X10^3/uL (2.7-7.7); Neutrophil % 76.6 % (47-70); Platelet Count 135 K/mm3 (150-450); RBC Distribution Width CV 12.2 % (11.6-14.6); Red Blood Count 3.82 M/mm3 (4.2-5.4)
--- NOTE | 2024-07-06 11:20 | CT_ITS ---
STUDY: CT ABDOMEN AND PELVIS WITH CONTRAST REASON FOR EXAM: Female, 64 years old. GI bleed. Constipation. History of prior left nephrectomy. RADIATION DOSAGE (If Supplied By Facility): CTDIvol = ( 13.45 ) mGy, DLP = ( 1085.74 ) mGycm TECHNIQUE: Transaxial images were obtained from the dome of the diaphragm to the symphysis pubis without oral contrast. IV 100mL Isovue-300 was administered. Sagittal and coronal images were reconstructed. Individualized dose optimization techniques were used for this CT. COMPARISON: None. FINDINGS: The visualized lung bases are unremarkable. The visualized portions of the heart are within normal limits. There is decreased attenuation of the liver consistent with steatosis. There is a 8.1 mm cyst in the medial right lobe of liver adjacent to the gallbladder fossa. Normal gallbladder and extrahepatic biliary system. Normal spleen. Normal pancreas. Normal bilateral adrenal glands. Normal right kidney. The patient is status post left nephrectomy. There is a small hiatal hernia. Normal small intestine. There is evidence of a circumferential wall thickening with narrowing of the lumen involving the descending colon distal to the splenic flexure down to the sigmoid colon. This is suggestive of colitis. There is evidence of sigmoid diverticulosis with no radiographic evidence of diverticulitis. Normal abdominal aorta. Normal inferior vena cava. Normal retroperitoneum. Normal urinary bladder. Normal abdominal wall. The patient is status post screw and suman fixation at L5-S1 level with persistent anterolisthesis of L5 on S1. CT/Abdomen/Pelvis W IV Cont ONLY IMPRESSION: Findings suggestive of colitis of the descending colon as described. Sigmoid diverticulosis with no radiographic evidence of diverticulitis. Status post left nephrectomy. Electronically Signed: Roberto Mraion MD at 12:04 [facility] ,
[2024-07-06 11:32] VITALS: BP 133/84; PULSE 79; RESP 16; O2SAT 98
--- NOTE | 2024-07-06 12:49 | ED.RN ---
Dr. Madsen stops this rn in the [facility] to let this rn know a new order of normal saline one liter. dr madsen stated that pt did not inform her of her nephrectomy and pt was given CT contrast. JOSE weaver
[2024-07-06 13:00] VITALS: BP 143/76; PULSE 80; RESP 16; O2SAT 99
[2024-07-06] MEDS: 0.9% Normal Saline (1000mL) 1,000 ML 999 ML IV (13:06)
[2024-07-06 14:25] VITALS: BP 136/78; PULSE 78; RESP 16; TEMP 36.6; O2SAT 97
== END 2024-07-06 14:33 | disposition home or self-care (01) ==
PROVIDERS: Emergency Provider Surgery; PCP Family Medicine; Visit Provider Surgery
DX: K55.9 Vascular disorder of intestine, unspecified (principal); I10 Essential (primary) hypertension; K52.9 Noninfective gastroenteritis and colitis, unspecified; Z90.5 Acquired absence of kidney; K57.30 Diverticulosis of large intestine without perforation or abscess without bleeding; N28.9 Disorder of kidney and ureter, unspecified; D69.6 Thrombocytopenia, unspecified; Z79.899 Other long term (current) drug therapy
CPT/HCPCS: 36415; 74177; 80048; 82274; 85025; 96360; 99283; Q9967; A4216

== ENCOUNTER → 2024-07-07 | Outpatient (CLI) | payer MEDICARE, OTHER, SELFPAY ==
[2024-07-07 12:59] LABS: Anion Gap 6 (5-15); BUN 18 mg/dL (7-18); BUN/Creat Ratio 19.1 RATIO (10-20); Calcium,Total 9.8 mg/dL (8.5-10.1); Chloride 101 mmol/L (98-107); Creatinine, Serum 0.94 mg/dL (0.55-1.02); EST Glomerular Filtration Rate 63 mL/min (>60); Est Glom Filt Rate - Afr Amer 76 mL/min (>60); Glucose 94 mg/dL (74-106); Potassium 3.1 mmol/L (3.5-5.1); Sodium Level 138 mmol/L (136-145)
== END | disposition home or self-care (01) ==
LOC: MFPLAB 09:22
PROVIDERS: PCP Family Medicine; Referring Provider Family Medicine; Visit Provider Family Medicine
DX: R60.9 Edema, unspecified (principal)

== ENCOUNTER → 2024-07-22 | Outpatient (CLI) | payer MEDICARE, OTHER, SELFPAY ==
[2024-07-22 10:17] LABS: Absolute Neutrophil Count 2.9 X10^3/uL (2.0-7.7); Basophil# 0.04 X10^3/uL; Basophil% 0.8 % (0-1); Eosinophil# 0.15 X10^3/uL; Eosinophils% 3.1 % (0-5); Hematocrit 39.8 % (37-47); Hemoglobin 13.1 g/dL (12.0-15.0); Lymphocyte % 30.7 % (19-41); Mean Corp Hgb Conc 32.9 g/dL (32-36); Mean Corpuscular Hgb 34.2 pg (27.0-32.0); Mean Corpuscular Volume 103.9 fL (81-99); Mean Platelet Vol. 10.6 fl (6.2-12.0); Monocyte# 0.34 X10^3/uL; NRBC Flagged by Analyzer 0 % (0-5); Neutrophil # 2.85 X10^3/uL (2.7-7.7); Neutrophil % 58.2 % (47-70); Platelet Count 168 K/mm3 (150-450); RBC Distribution Width CV 12.4 % (11.6-14.6); RBC Distribution Width SD 47.7 fl (35.1-43.9); Red Blood Count 3.83 M/mm3 (4.2-5.4); White Blood Count 4.9 K/mm3 (4.4-11.0)
[2024-07-22 10:30] LABS: Anion Gap 8 (5-15); BUN 17 mg/dL (7-18); BUN/Creat Ratio 19.3 RATIO (10-20); Chloride 107 mmol/L (98-107); Creatinine, Serum 0.88 mg/dL (0.55-1.02); EST Glomerular Filtration Rate 68 mL/min (>60); Est Glom Filt Rate - Afr Amer 82 mL/min (>60); Glucose 91 mg/dL (74-106); Potassium 3.8 mmol/L (3.5-5.1); Sodium Level 141 mmol/L (136-145)
== END | disposition home or self-care (01) ==
LOC: MFPLAB 09:12
PROVIDERS: PCP Family Medicine; Referring Provider Family Medicine; Visit Provider Family Medicine
DX: E87.6 Hypokalemia (principal); Z87.19 Personal history of other diseases of the digestive system
CPT/HCPCS: 36415; 80048; 85025

== ENCOUNTER → 2024-08-06 | Outpatient (CLI) | payer MEDICARE, OTHER, SELFPAY ==
--- NOTE | 2024-08-06 10:51 | ECHOD_ITS ---
Reason For Study Reason For Study: MURMUR Procedure This was a 2D Doppler, Color Flow transthoracic echocardiogram. Exam performed in department. Left Ventricle Normal size and thickness. The left ventricular ejection fraction is 70 %. Normal diastology for age. Right Ventricle Normal right ventricle. Atria The left atrium is mildly enlarged. Normal right atrium. Mitral Valve Trivial mitral valve insufficiency. Tricuspid Valve Mild tricuspid valve insufficiency. Right ventricular systolic pressure estimated to be 39 mmHg. Aortic Valve Trisinus/trileaflet aortic valve. Pulmonic Valve The pulmonic valve is not well visualized. Great Vessels Normal-sized aortic root. Pericardium/Pleural No pericardial effusion. MMode/2D Measurements & Calculations LVIDd: 5.0 cm IVSd: 1.0 cm LVOT diam: 1.9 cm LVIDs: 2.6 cm LVPWd: 0.94 cm LVOT area: 2.8 cm2 RVDd: 3.8 cm FS: 48.0 % asc Aorta Diam: 3.4 cm LAV(MOD-bp): 60.1 ml LVAd ap4: 28.3 cm2 LAV(MOD-bp) Indexed: 29.0 ml/m2 LVLd ap4: 7.6 cm LAV(MOD-sp2): 70.1 ml EDV(MOD-sp4): 83.6 ml LAV(MOD-sp4): 52.3 ml EDV(sp4-el): 88.9 ml LVAs ap4: 11.8 cm2 LVLs ap4: 6.2 cm ESV(MOD-sp4): 19.2 ml ESV(sp4-el): 18.9 ml EF(MOD-sp4): 77.0 % EF(sp4-el): 78.7 % LVAd ap2: 23.7 cm2 SV(MOD-sp4): 64.4 ml SV(MOD-sp2): 37.8 ml LVLd ap2: 7.7 cm SI(MOD-sp4): 31.0 ml/m2 SI(MOD-sp2): 18.2 ml/m2 EDV(MOD-sp2): 60.9 ml EDV(sp2-el): 62.0 ml LVAs ap2: 13.0 cm2 LVLs ap2: 6.4 cm ESV(MOD-sp2): 23.2 ml ESV(sp2-el): 22.5 ml EF(MOD-sp2): 62.0 % SV(sp4-el): 70.0 ml Ao sinus diam: 3.[address] Junction: 2.5 cm LA dimension(2D): 4.4 cm LA A4 area: 20.5 cm2 RA A4 area: 12.7 cm2 TAPSE: 2.1 cm Time Measurements MV dec time: 0.24 sec Doppler Measurements & Calculations MV E max roberto: 65.7 cm/sec Lat Peak E' Roberto: 17.8 cm/sec Med Peak E' Roberto: 8.8 cm/sec MV A max roberto: 85.9 cm/sec E/E' lat: 3.7 E/E' med: 7.5 MV E/A: 0.76 MV dec slope: 276.9 cm/sec2 Ao V2 max: 199.3 cm/sec LV V1 max: 146.1 cm/sec Ao max P.0 mmHg LV V1 max P.5 mmHg Ao V2 mean: 139.5 cm/sec LV V1 mean P.4 mmHg Ao mean P.8 mmHg LV V1 mean: 97.5 cm/sec Ao V2 VTI: 43.1 cm LV V1 VTI: 36.2 cm AV (velocity ratio): 0.84 PATRICK(I,D): 2.4 cm2 PATRICK(V,D): 2.1 cm2 SV(LVOT): 103.0 ml PA V2 max: 131.7 cm/sec TR max roberto: 244.2 cm/sec TR max P.9 mmHg ECHO/Echo Complete Interpretation Summary The left ventricular ejection fraction is 70 %. The left atrium is mildly enlarged. Mild tricuspid valve insufficiency. Right ventricular systolic pressure estimated to be 39 mmHg. Ordering Physician: Nayana Jackson Referring Physician: Lorenzo Gunn Performed By: Estelle Ring RDCS
== END | disposition home or self-care (01) ==
LOC: CVS 10:48
PROVIDERS: PCP Family Medicine; Referring Provider Physician Assistant Medical; Visit Provider Physician Assistant Medical
DX: R01.1 Cardiac murmur, unspecified (principal)
CPT/HCPCS: 93306

== ENCOUNTER → 2024-09-01 | Outpatient (CLI) | payer MEDICARE, OTHER, SELFPAY ==
[2024-09-01 13:21] LABS: Anion Gap 15 (5-15); BUN 44 mg/dL (4-19); BUN/Creat Ratio 22.5 RATIO (10-20); Calcium,Total 9.6 mg/dL (7.6-11.0); Chloride 99 mmol/L (98-108); Creatinine, Serum 1.95 mg/dL (0.70-1.20); EST Glomerular Filtration Rate 28 (>60); Glucose 91 mg/dL (70-99); Sodium Level 139 mmol/L (133-145)
== END | disposition home or self-care (01) ==
LOC: MFPLAB 09:18
PROVIDERS: PCP Family Medicine; Referring Provider Family Medicine; Visit Provider Family Medicine
DX: E87.6 Hypokalemia (principal)
CPT/HCPCS: 36415; 80048

== ENCOUNTER 2024-09-04 05:43 | Day surgery (SDC) | payer MEDICARE, OTHER, SELFPAY ==
--- NOTE | 2024-09-02 15:46 | PAT.ANE_ITS ---
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 When Was Last Pacemaker Check QUESTION #4 FULL TEXT: You/Your Family Experience fever (hyperthermia) with Anesthesia Last Oral Intake Last Oral intake: Last Oral Intake NPO since Meds taken in AM with sips of water? 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 - neuropsychology director: PONV - neuropsychology director Female Yes 09/02/24 14:49 HX of Motion Sickness No 09/02/24 14:49 HX of N/V After Surgery No 09/02/24 14:49 Non-Smoker Yes 09/02/24 14:49 Duration of Surgery greater No 09/02/24 14:49 than 60 minutes Number of Risk Factors 2 09/02/24 14:49 PONV Score Moderate Risk 09/02/24 14:49 Height & Weight Height & Weight: Anesthesia: Height & Weight Height 5 ft 4 in 07/06/24 09:32 Respiratory Assessment Respiratory Assessment - neuropsychology director: Respiratory Tract Infection Hx - neuropsychology director Hx Respiratory Tract Infection No 09/02/24 14:49 STOP Sleep Apnea STOP Sleep Apnea - neuropsychology director: STOP Sleep Apnea - neuropsychology director Hx Hypertension Yes: CONTROLLED WITH MED 09/02/24 14:49 Hx Sleep Apnea No 09/02/24 14:49 CPAP No 05/04/20 20:20 BIPAP No 05/04/20 20:20 Do you snore loudly (louder No 09/02/24 14:49 than talking or can be heard Do you often feel tired/ No 09/02/24 14:49 fatigued/ sleepy during daytime? Has anyone observed you stop No 09/02/24 14:49 breathing during sleep? STOP Results Negative 09/02/24 14:49 QUESTION #5 FULL TEXT : Do you snore loudly (louder than talking or can be heard through closed doors)? 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 Specify any problems Hx of Preganancy in last 3 N/A 09/02/24 14:49 Months Nurse Filling Out Transfusion NBUCHER 09/02/24 14:49 & Questions: Date: 09/02/24 09/02/24 14:49 Time: 14:50 09/02/24 14:49 Patient unable to answer at this time (ie. confused, unrespo /Reproduction History /Reproductive History - neuropsychology director: /Reproductive Hx- neuropsychology director Hx Now No 09/02/24 14:49 Gestational Age (in weeks): EDC: Hx Hx Para Hx Section SAB No 09/02/24 14:49 PFSH Medical History (Updated 09/02/24 @ 14:55 by oN Pantoja) Wears partial dentures Wears glasses Ambulates with cane Arthritis Non-smoker History of edema History of echocardiogram Cardiology follow-up encounter Non-rheumatic tricuspid valve insufficiency Cardiac murmur Essential hypertension Cellulitis of leg, left Obesity Hypertension Varicose veins with inflammation Chronic venous insufficiency Pain In Right Leg Pain In Left Leg Edema of both legs Swelling of lower limb Home Medications ?Medication ?Instructions ?Recorded ?Last Taken ?Type acetaminophen 500 mg tablet 1,000 mg PO Q6H PRN fever or pain 10/15/22 Unknown History furosemide 40 mg tablet 40 mg PO DAILY 10/15/2206/24 History lisinopril 20 mg tablet 20 mg PO DAILY #30 tabs 09/2307/05/24 Rx multivitamin 1 tab PO DAILY 10/16/2206/24 History spironolactone 50 mg tablet 50 mg PO DAILY 07/06/24 History Allergy/AdvReac Type Severity Reaction Status Date / Time Sulfa (Sulfonamide Allergy Rash Verified 09/02/24 14:47 Antibiotics) Family History Father Hypertension Arthritis Brother Diabetes Surgical History (Updated 09/02/24 @ 14:55 by No Pantoja) History of nephrectomy, left (~2006) History of bilateral knee replacement History of back surgery History of Social History household members: spouse current occupational status: retired Smoking Status: Never smoker second hand exposure: No alcohol intake: never substance use type: does not use caffeine: Yes frequency: does not exercise Audit: Pertinent Findings Pertinent Findings EKG Perinent findings: 10/16/2022. Sinus bradycardia 51 bpm. Echo (EF%) pertinent findings: 08/06/2024. EF 70%. Right ventricular systolic pressure 39 mmHg Consult pertinent findings: Cardiology 08/17/2024. Hypertension chronic. Controlled on current medication. No adjustments. Mild to moderate nonrheumatic tricuspid valve insufficiency. Recommendation Anesthesia Recommendation Anesthesia recommendation: OPTIMIZED for anesthesia
[2024-09-04] VITALS (7 sets, daily range): BP systolic 83–109; BP diastolic 49–63; PULSE 71–87; RESP 16–18; TEMP 36.4–36.5; O2SAT 97–100; BMI 39.1
--- NOTE | 2024-09-04 06:32 | PCM.PRE.AN2 ---
ASA Classification* ASA Classification ASA Classification: 2 (Be aware patient has mild-moderate pulm HTN (RSVP 39). ) Assessment & Plan Anesthesia* Anesthesia Assessment Anesthesia Assessment: Discussed sedation and/or anesthesia options, risks, benefits, and alternatives with patient/parents/legal guardian/POA. Questions invited. The patient/parents/legal guardian/POA seems to understand and agrees to proceed with anesthesia plan. Reviewed the physical assessment, medical history, allergy history and patient home medications list prior to surgery/procedure/anesthetic and documented any changes. Performed airway and anesthesia risk assessments. Anesthesia Type Anesthesia Type: General History Source History Obtained from:: Patient and Chart Anesthesia Focused Assessment* Temperature: 97.7 F Pulse Rate: 87 Blood Pressure: 109/63 Respiratory Rate: 16 Pulse Ox: 100 Oxygen Delivery Method: Room Air Airway Assessment Mouth opens: >3 cm Mallampati Score: II Teeth Condition: Intact and Loose (partials) Focused Labs Anesthesia Preop lab: CBC WBC 4.9 K/mm3 (4.4-11.0) 07/22/24 09:13 07/22/24 RBC 3.83 M/mm3 (4.2-5.4) L 07/22/24 09:13 07/22/24 Hgb 13.1 g/dL (12.0-15.0) 07/22/24 09:13 07/22/24 Hct 39.8 % (37-47) 07/22/24 09:13 07/22/24 Plt Count 168 K/mm3 (150-450) 07/22/24 09:13 07/22/24 CHEMISTRY Potassium 4.0 mmol/L (3.3-5.1) 09/01/24 09:18 09/01/24 Sodium 139 mmol/L (133-145) 09/01/24 09:18 09/01/24 Magnesium 1.7 mg/dL (1.6-2.6) 05/05/20 06:43 05/05/20 BUN 44 mg/dL (4-19) H 09/01/24 09:18 09/01/24 Creatinine 1.95 mg/dL (0.70-1.20) H 09/01/24 09:18 09/01/24 Glucose 91 mg/dL (70-99) 09/01/24 09:18 09/01/24 TSH 1.62 uIU/mL (0.358-3.74) 10/16/22 11:58 10/16/22 COAG PT 15.2 SECONDS (11.7-14.9) H 05/04/20 15:30 05/04/20 Pre-Assessment Diagnosis/Proposed Procedure Planned Operative Procedure(s): CSCOPE Anesthesia History 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 When Was Last Pacemaker Check QUESTION #4 FULL TEXT: You/Your Family Experience fever (hyperthermia) with Anesthesia Last Oral Intake Last Oral intake: Last Oral Intake NPO since 03:30 09/04/24 06:13 Meds taken in AM with sips of No 09/04/24 06:13 water? 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 Female Yes 09/02/24 14:49 HX of Motion Sickness No 09/02/24 14:49 HX of N/V After Surgery No 09/02/24 14:49 Non-Smoker Yes 09/02/24 14:49 Duration of Surgery greater No 09/02/24 14:49 than 60 minutes Number of Risk Factors 2 09/02/24 14:49 PONV Score Moderate Risk 09/02/24 14:49 Height & Weight Height & Weight: Anesthesia: Height & Weight Height 5 ft 4 in 09/04/24 06:13 Weight: 103.419 kg 09/04/24 06:13 Body Mass Index (BMI) 39.1 09/04/24 06:13 Respiratory Assessment Respiratory Assessment - line dancer: Respiratory Tract Infection Hx - line dancer Hx Respiratory Tract Infection No 09/02/24 14:49 STOP Sleep Apnea STOP Sleep Apnea - line dancer: STOP Sleep Apnea - line dancer Hx Hypertension Yes: CONTROLLED WITH MED 09/02/24 14:49 Hx Sleep Apnea No 09/02/24 14:49 CPAP No 05/04/20 20:20 BIPAP No 05/04/20 20:20 Do you snore loudly (louder No 09/02/24 14:49 than talking or can be heard Do you often feel tired/ No 09/02/24 14:49 fatigued/ sleepy during daytime? Has anyone observed you stop No 09/02/24 14:49 breathing during sleep? STOP Results Negative 09/02/24 14:49 QUESTION #5 FULL TEXT : Do you snore loudly (louder than talking or can be heard through closed doors)? 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 Specify any problems Hx of Preganancy in last 3 N/A 09/02/24 14:49 Months Nurse Filling Out Transfusion [facility]BU[facility] 09/02/24 14:49 & Questions: Date: 09/02/24 09/02/24 14:49 Time: 14:50 09/02/24 14:49 Patient unable to answer at this time (ie. confused, unrespo /Reproduction History /Reproductive History - line dancer: /Reproductive Hx- line dancer Hx Now No 09/02/24 14:49 Gestational Age (in weeks): EDC: Hx Hx Para Hx Section SAB No 09/02/24 14:49 PFSH Medical History (Updated 09/02/24 @ 14:55 by No Pantoja) Wears partial dentures Wears glasses Ambulates with cane Arthritis Non-smoker History of edema History of echocardiogram Cardiology follow-up encounter Non-rheumatic tricuspid valve insufficiency Cardiac murmur Essential hypertension Cellulitis of leg, left Obesity Hypertension Varicose veins with inflammation Chronic venous insufficiency Pain In Right Leg Pain In Left Leg Edema of both legs Swelling of lower limb Home Medications ?Medication ?Instructions ?Recorded ?Last Taken ?Type acetaminophen 500 mg tablet 1,000 mg PO Q6H PRN fever or pain 10/15/22 Unknown History furosemide 40 mg tablet 40 mg PO DAILY 10/15/22 09/02/24 History lisinopril 20 mg tablet 20 mg PO DAILY #30 tabs 10/16/22 09/02/24 Rx multivitamin 1 tab PO DAILY 10/16/22 08/28/24 History spironolactone 50 mg tablet 50 mg PO DAILY 07/06/24 09/02/24 History Allergy/AdvReac Type Severity Reaction Status Date / Time Sulfa (Sulfonamide Allergy Rash Verified 09/04/24 06:09 Antibiotics) Family History Father Hypertension Arthritis Brother Diabetes Surgical History (Updated 09/02/24 @ 14:55 by No Pantoja) History of nephrectomy, left (~2006) History of bilateral knee replacement History of back surgery History of Social History household members: spouse current occupational status: retired Smoking Status: Never smoker second hand exposure: No alcohol intake: never substance use type: does not use caffeine: Yes frequency: does not exercise Review of Systems (Anesthesia) ROS Narrative System reviewed and no additional complaints, except as documented. Physical Exam Const alert, oriented x3 and average body habitus Resp normal respiratory effort, normal air movement and clear to auscultation bilaterally Cardio regular rate, regular rhythm, no murmurs and diaphoretic
--- NOTE | 2024-09-04 06:54 | PCM.HP.STD ---
HPI - General General Date of Admission: 09/04/24 Date of Service: 09/04/24 Chief Complaint: colitis and abnormal ct scan HPI Narrative LORENA IVEY, is a 64 F who presents t for colonoscopy today after undergoing CT scan abdomen pelvis and was discovered to have acute colitis. [facility] ED 07.06.24 with complaints of BRBPR. Hx of constipation. Last colonoscopy [address] showing colitis. Discharged with GI f/u. CT Abd/pelvis 07.06.24; Findings suggestive of colitis of the descending colon as described. Sigmoid diverticulosis with no radiographic evidence of diverticulitis. Status post left nephrectomy. OV 07.14.24; Pt has been doing well since he ED visit. She is no longer having any blood in her stools. She denies abd pain, n/v, or diarrhea. She struggles with chronic constipation which is how the colitis started. She is now taking miralax daily which she feels has been helpful. [facility] Medical History Wears partial dentures Wears glasses Ambulates with cane Arthritis Non-smoker History of edema History of echocardiogram Cardiology follow-up encounter Non-rheumatic tricuspid valve insufficiency Cardiac murmur Essential hypertension Cellulitis of leg, left Obesity Hypertension Varicose veins with inflammation Chronic venous insufficiency Pain In Right Leg Pain In Left Leg Edema of both legs Swelling of lower limb Home Medications ?Medication ?Instructions ?Recorded ?Last Taken ?Type acetaminophen 500 mg tablet 1,000 mg PO Q6H PRN fever or pain 10/15/22 Unknown History furosemide 40 mg tablet 40 mg PO DAILY 10/15/22 09/02/24 History lisinopril 20 mg tablet 20 mg PO DAILY #30 tabs 10/16/22 09/02/24 Rx multivitamin 1 tab PO DAILY 10/16/22 08/28/24 History spironolactone 50 mg tablet 50 mg PO DAILY 07/06/24 09/02/24 History Allergy/AdvReac Type Severity Reaction Status Date / Time Sulfa (Sulfonamide Allergy Rash Verified 09/04/24 06:09 Antibiotics) Family History Father Hypertension Arthritis Brother Diabetes Surgical History History of nephrectomy, left (~2006) History of bilateral knee replacement History of back surgery History of Social History household members: spouse current occupational status: retired Smoking Status: Never smoker second hand exposure: No alcohol intake: never substance use type: does not use caffeine: Yes frequency: does not exercise ROS Constitutional Constitutional: Denies fatigue, fever(s), poor appetite, weight gain or weight loss Gastrointestinal Gastrointestinal: Denies belching, bloating, change in bowel habits, change in stool character, chewing difficulty, coffee ground emesis, constipation, cramping, diarrhea, dyspepsia, dysphagia, early satiety, excessive flatus, fecal incontinence, heartburn, hematemesis, hematochezia, hemorrhoids, loose stools, melena, nausea, odynophagia, rectal bleeding, tenesmus, vomiting or weight changes Vital Signs Vital Signs Vital Signs: 09/04/24 06:11 09/04/24 06:13 09/04/24 06:33 Temperature 97.7 F L 97.7 F L Temperature Source Temporal Pulse Rate 87 87 Respiratory Rate 16 16 Respiratory Pattern Normal Blood Pressure 109/63 109/63 Blood Pressure Mean 78 Blood Pressure Source Monitor Blood Pressure Position Semi-Fowlers Blood Pressure Location Left Arm Pulse Ox 100 100 Oxygen Delivery Method Room Air Room Air Weight Weight: 228 lb Body Mass Index (BMI) 39.1 Physical Exam Const alert, oriented x3, no apparent distress and healthy appearing General Appearance: cooperative GI normal to inspection, nondistended, normoactive bowel sounds, soft to palpation, non-tender and non-distended Percussion: normal to percussion Rectal Exam: deferred Assessment & Plan Assessment/Plan (1) Colitis: PLAN: Assessment and Plan Assessment and Plan (1) Colitis: Status: Acute Plan: This is a 64 yo female pt here today for ED f/u. Pt had one episode of bright red blood per rectum which prompted her to go to the ED and was found to have colitis on CT scan. Last colonoscopy was 5 years ago with no abnormalities. She will undergo colonoscopy to ensure there is no remaining inflammation and she is due for screening. Pt has been taking miralax daily for her chronic constipation which has been helpful. SHe will continue this and add in an extra dose as needed. She is agreeable to plan. -Colonoscopy -Continue miralax daily -f/u after procedure
--- NOTE | 2024-09-04 07:50 | OP.COLON_ITS ---
Patient Name: Yuly Teran Procedure Date: 09/04/2024 7:16 AM Date of : 1960 Age: 64 Procedure: Colonoscopy Indications: Screening for colorectal malignant neoplasm Providers: David Shelton DO Referring MD: Lorenzo Gunn MD Medicines: Monitored Anesthesia Care Patient Profile: This is a 64 year old female. Refer to note in patient chart for documentation of history and physical. Last Colonoscopy: 5 years ago. Complications: No immediate complications. Procedure: Pre-Anesthesia Assessment: - Prior to the procedure, a History and Physical was performed, and patient medications and allergies were reviewed. The patient is competent. The risks and benefits of the procedure and the sedation options and risks were discussed with the patient. All questions were answered and informed consent was obtained. Patient identification and proposed procedure were verified by the physician in the pre-procedure area. Mental Status Examination: alert and oriented. Airway Examination: normal oropharyngeal airway and neck mobility. Respiratory Examination: clear to auscultation. CV Examination: normal. ASA Grade Assessment: II - A patient with mild systemic disease. After reviewing the risks and benefits, the patient was deemed in satisfactory condition to undergo the procedure. The anesthesia plan was to use monitored anesthesia care (MAC). Immediately prior to administration of medications, the patient was re-assessed for adequacy to receive sedatives. The heart rate, respiratory rate, oxygen saturations, blood pressure, adequacy of pulmonary ventilation, and response to care were monitored throughout the procedure. The physical status of the patient was re-assessed after the procedure. After I obtained informed consent, the scope was passed under direct vision. Throughout the procedure, the patient's blood pressure, pulse, and oxygen saturations were monitored continuously. The colonoscope was introduced through the anus and advanced to the cecum, identified by appendiceal orifice and ileocecal valve. The colonoscopy was performed without difficulty. The patient tolerated the procedure well. The quality of the bowel preparation was adequate. The terminal ileum, ileocecal valve, appendiceal orifice, and rectum were photographed. Scope In: 7:25:01 AM Scope Withdrawal Time 0 hours 8 minutes 4 seconds Scope Out: 7:47:22 AM Total Procedure Duration Time 0 hours 22 minutes 21 seconds Findings: The perianal and digital rectal examinations were normal. Multiple small and large-mouthed diverticula were found in the recto-sigmoid colon and sigmoid colon. Multiple small and large-mouthed diverticula were found in the recto-sigmoid colon, sigmoid colon, hepatic flexure and ascending colon. The exam was otherwise without abnormality on direct and retroflexion views. Impression: - Diverticulosis in the recto-sigmoid colon and in the sigmoid colon. - Diverticulosis in the recto-sigmoid colon, in the sigmoid colon, at the hepatic flexure and in the ascending colon. - The examination was otherwise normal on direct and retroflexion views. - No specimens collected. Recommendation: - Discharge patient to home. - Resume previous diet. - Continue present medications. - Repeat colonoscopy in 10 years for screening purposes. Procedure Code(s): --- Professional --- G0121, Colorectal cancer screening; colonoscopy on individual not meeting criteria for high risk CPT copyright 2021 [employer]. All rights reserved. The codes documented in this report are preliminary and upon remedial teacher review may be revised to meet current compliance requirements. David Shelton DO 09/04/2024 7:50:21 AM This report has been signed electronically. Number of Addenda: 0 Note Initiated On: 09/04/2024 7:16 AM
--- NOTE | 2024-09-04 07:51 | OP.CCLET_ITS ---
09/04/2024 Lorenzo Gunn MD [address] [place] [address] Re : Colonoscopy procedure for Yuly Teran Dear Dr. Gunn This procedure was performed on Wednesday, September 04, 2024. My impressions and recommendations are as follows: Impressions : - Diverticulosis in the recto-sigmoid colon and in the sigmoid colon. - Diverticulosis in the recto-sigmoid colon, in the sigmoid colon, at the hepatic flexure and in the ascending colon. - The examination was otherwise normal on direct and retroflexion views. - No specimens collected. Recommendations : - Discharge patient to home. - Resume previous diet. - Continue present medications. - Repeat colonoscopy in 10 years for screening purposes. My findings are described in the full procedure note, which is enclosed. If I can be of further assistance, please feel free to contact me at . Sincerely, David Shelton, 09/04/2024 7:50:21 AM This report has been signed electronically.
--- NOTE | 2024-09-04 08:01 | PCM.POST.ANE ---
Anesthesia: Postop Eval I Current Vital Signs Temperature: 97.6 F Pulse Rate: 71 Blood Pressure: 83/57 Respiratory Rate: 18 Pulse Ox: 98 Oxygen Delivery Method: Room Air Assessment Airway patent: Yes Spontaneous unlabored respirations: Yes Mental status: Awake and Calm nausea: No Vomiting: No Anesthesia Complication: No Fluid Hydration Crystalloid volume administer (ml): 60 Total IV fluid infused: 60 Progress Note Anesthesia document: Postop Eval 1 completed: Yes
--- NOTE | 2024-09-04 09:29 | PCM.POSTANE2 ---
Anesthesia Postop Eval I Sum Postop Eval Completion status Anesthesia document: Postop Eval 1 completed: Yes Anesthesia Postop Eval I Summary Anesthesia Postop Eval I Summary: Anesthesia Postop Eval I: Assessment Summary Airway patent Yes 09/04/24 08:01 [email or web address] Spontaneous unlabored Yes 09/04/24 08:01 [email or web address] respirations Mental status Awake,Calm 09/04/24 08:01 [email or web address] nausea No 09/04/24 08:01 [email or web address] Vomiting No 09/04/24 08:01 [email or web address] Anesthesia Postop Eval I: Fluid Summary Crystalloid volume administer 60 09/04/24 08:01 [email or web address] (ml) Colloids volume administered ( ml) Blood Product volume administered (ml) Total IV fluid infused 60 09/04/24 08:01 [email or web address] Anesthesia Postop Eval I: Summary Notes Anesthesia Complication No 09/04/24 08:01 [email or web address] Anesthesia Complication Comment: Post-operative progress note Anesthesia: Postop Eval II Evaluation Mental status: Awake Pain Level: 0 nausea: No Vomiting: No
== END 2024-09-04 08:31 | disposition home or self-care (01) ==
LOC: EN 05:43 → AC 05:48
PROVIDERS: PCP Family Medicine; Referring Provider Family Medicine; Visit Provider Internal Medicine Gastroenterology
PROC: 0DJD8ZZ Inspection of Lower Intestinal Tract, Via Natural or Artificial Opening Endoscopic (ICD-10-PCS; CPT 45378; principal; 2024-09-04 06:55)
DX: Z12.11 Encounter for screening for malignant neoplasm of colon (principal); K52.9 Noninfective gastroenteritis and colitis, unspecified; Z90.5 Acquired absence of kidney; K57.30 Diverticulosis of large intestine without perforation or abscess without bleeding; I10 Essential (primary) hypertension; Z79.899 Other long term (current) drug therapy
CPT/HCPCS: G0121; A4216; J2405

== ENCOUNTER → 2024-09-09 | Outpatient (CLI) | payer MEDICARE, OTHER, SELFPAY ==
[2024-09-09 10:48] LABS: Anion Gap 13 (5-15); BUN 52 mg/dL (4-19); Calcium,Total 10.1 mg/dL (7.6-11.0); Carbon Dioxide 23.9 mmol/L (21.0-32.0); Chloride 103 mmol/L (98-108); Creatinine, Serum 1.78 mg/dL (0.70-1.20); EST Glomerular Filtration Rate 31 (>60); Glucose 88 mg/dL (70-99); Potassium 4.1 mmol/L (3.3-5.1); Sodium Level 140 mmol/L (133-145)
== END | disposition home or self-care (01) ==
LOC: MFPLAB 09:33
PROVIDERS: PCP Family Medicine; Referring Provider Family Medicine; Visit Provider Family Medicine
DX: R60.9 Edema, unspecified (principal)
CPT/HCPCS: 36415; 80048

== ENCOUNTER → 2024-09-30 | Outpatient (CLI) | payer MEDICARE, OTHER, SELFPAY ==
[2024-09-30 15:29] LABS: Anion Gap 9 (5-15); BUN 18 mg/dL (4-19); Calcium,Total 9.5 mg/dL (7.6-11.0); Carbon Dioxide 23.9 mmol/L (21.0-32.0); Chloride 105 mmol/L (98-108); Creatinine, Serum 0.94 mg/dL (0.70-1.20); EST Glomerular Filtration Rate 67 (>60); Glucose 89 mg/dL (70-99); Potassium 4.1 mmol/L (3.3-5.1); Sodium Level 138 mmol/L (133-145)
== END | disposition home or self-care (01) ==
LOC: MFPLAB 09:23
PROVIDERS: PCP Family Medicine; Referring Provider Family Medicine; Visit Provider Family Medicine
DX: I10 Essential (primary) hypertension (principal)
CPT/HCPCS: 36415; 80048

== ENCOUNTER → 2024-12-31 | Outpatient (CLI) | payer MEDICARE, OTHER, SELFPAY ==
[2024-12-31 18:18] LABS: Anion Gap 11 (5-15); BUN 14 mg/dL (4-19); BUN/Creat Ratio 16.4 RATIO (10-20); Calcium,Total 9.6 mg/dL (7.6-11.0); Carbon Dioxide 21.7 mmol/L (21.0-32.0); Chloride 106 mmol/L (98-108); Cholesterol 175 mg/dL (<=200); Glucose 98 mg/dL (70-99); Low Density Lipoprotein Calc. 94 mg/dL; Potassium 4.1 mmol/L (3.3-5.1); Triglycerides 121 mg/dL; Very Low Density Lipoprotein 24 mg/dL (5-40); cholesterol:hdl ratio screen 3.05
== END | disposition home or self-care (01) ==
LOC: MFPLAB 16:15
PROVIDERS: PCP Family Medicine; Referring Provider Family Medicine; Visit Provider Family Medicine
DX: I10 Essential (primary) hypertension (principal)
CPT/HCPCS: 36415; 80048; 80061

== ENCOUNTER → 2025-01-01 | Outpatient (CLI) | payer MEDICARE, OTHER, SELFPAY ==
[2025-01-01 13:22] LABS: Creatinine, Urine (random) 123.00 mg/dL (28.00-217.00); Microalbumin,Random Urine < 12.0 mg/L (NO RANGE EST.)
== END | disposition home or self-care (01) ==
LOC: LABSPEC 09:16
PROVIDERS: PCP Family Medicine; Referring Provider Family Medicine; Visit Provider Family Medicine
DX: N18.9 Chronic kidney disease, unspecified (principal)
CPT/HCPCS: 82043; 82570